=== PATIENT | female | born 1940 | race Caucasian/White ===

== ENCOUNTER 2023-10-17 22:47 | Inpatient (IN) | payer MEDICARE, OTHER, SELFPAY ==
[2023-10-17 18:18] VITALS: BP 119/54; BMI 23.8
[2023-10-17 18:22] VITALS: BMI 23.8
[2023-10-17 18:45] LABS: % Basophils 0.7 % (0-2); % Eosinophils 1.9 % (0-6); % Immature Granulocytes 0.2 % (0-0.5); % Lymphocytes 52.4 % (20.5-51.1); % Monocytes 9.4 % (1.7-9.3); % Neutrophils 35.4 % (42.2-75.2); Absolute Eosinophils 0.1 10^3/uL (0-0.7); Absolute Lymphocytes 3.1 10^3/uL (1.2-3.4); Absolute Monocytes 0.6 10^3/uL (0.1-0.6); Absolute Neutrophils 2.1 10^3/uL (1.4-6.5); Hematocrit 35.3 % (37.0-47.0); Hemoglobin 11.5 g/dL (12.0-16.0); Mean Corp Hgb Conc. 32.6 g/dL (33.0-37.0); Mean Corpuscular Hgb 23.9 pg (27.0-31.0); Mean Corpuscular Volume 73.2 fL (81.0-99.0); Mean Platelet Volume 9.7 fL (7.4-10.4); Nucleated Red Blood Cells % 0 %; Platelet Count 303 10^3/uL (130-400); Red Blood Cell Count 4.82 10^6/uL (4.20-5.40); Red Cell Dist. Width 15.5 % (11.5-14.5); White Blood Cell Count 5.9 10^3/uL (4.8-10.8)
--- NOTE | 2023-10-17 18:56 | ED.GENMED ---
History of Present Illness
General
Chief Complaint: Change in Mental Status
Source: patient and family (Son- in law)
Exam Limitations: dementia
Time Seen by Provider: 10/17/23 18:24
Travel History
Have you had any contact with someone who has COVID-19?: No
Do you have any symptoms of coronavirus? Fever > 100 degrees, chills, cough, shortness of breath, sore throat, loss of taste or smell, muscle aches, or headache?: No
History of Present Illness
History of Present Illness:
This is a 83 year old female that is brought in by ambulance with c/o increased confusion and not caring for self. Son-in-law states that today patient was not getting OOB. States that she was incont of urine and the bed was soaked. States that on
Friday her daughter talked with her and she was confused and talking about snakes. States that she has not been going down to meals except dinner. States that her urine has a strong smell. States that they want to get patient moved from
Independent living to assisted living at [facility]. States that the patient has COVID a week ago. States that she also has not been bathing. Denies any fever, chills, chest pain, SOB, abd pain, nausea, vomiting, diarrhea, headache, dizziness,
urinary burning.
Past History
Past History
ED Past Medical History: Other (Dementia); Negative CAD, GERD, HTN, Hypercholesterolemia, NIDDM or Hypothyroidism
ED Past Surgical History: Other (Cataract removal)
Social History
Tobacco: Former smoker
Alcohol: Occasional (Rare alcohol use)
Drug: None
Personal: (But for 30 years)
Living: alone
Employment: Retired
Family History
Family History: Negative Early CAD, CAD or Sudden
Review of Systems
Review of Systems
Other source history: family
All Other Systems: ROS reviewed and negative except as documented in HPI and ROS
Constitutional: Reports no symptoms; Denies fever or chills
EENT: Reports no symptoms
Respiratory: Reports no symptoms; Denies trouble breathing or other
Cardiac: Reports no symptoms; Denies chest pain
ABD/GI: Reports no symptoms; Denies abdominal pain, nausea, vomiting or diarrhea
: Reports incontinence (fowl smell)
Musculoskeletal: Reports no symptoms
Skin: Reports no symptoms
Neurological: Reports no symptoms; Denies dizzy or headache
Psychiatric: Reports no symptoms
Phy Exam
General Physical Exam
General Presentation: no apparent distress
General age: appears stated age
General Skin: warm and dry
General Habitus: elderly
General Mental: usual mental status
General Hydration: appears well hydrated
ENT Exam
ENT Exam: TM's normal, pharynx normal and neck supple
Eye Exam
Eye Exam: EOMI
Cardiovascular Exam
Cardiovascular Exam: regular rate/rhythm, no edema and normal peripheral pulses
Pulmonary Exam
Pulmonary Exam: lungs clear, no respiratory distress, no rales, chest non tender, no crackles, no rhonchi, no wheezing and no cough
Gastrointestinal Exam
Gastrointestinal Exam: normal bowel sounds, non tender, soft, no organomegaly, no pulsatile mass and non distended
Musculoskeletal Exam
Musculoskeletal Exam: full ROM and no edema
Skin Exam
Skin Exam: normal color, warm/dry, no rash and no petechia
Psychiatric Exam
Psychiatric Exam: normal mood/affect
Course
Orders/Labs/Results
Orders:
Orders
10/17/23 18:27
CBC/With Diff [Complete Blood Count/With Diff] Urgent
CMP [Comprehensive Metabolic Panel] Urgent
Urinalysis Reflex To Culture Urgent
Date Specimen was Collected: 10/17/23
Time Specimen was Collected: 18:25
Urine Microscopic Reflex Cult Urgent
Urine Culture Urgent
FAISAL Source: U
Specimen Description:
Date Specimen was Collected: 10/17/23
Time Specimen was Collected: 18:25
10/17/23 18:29
COVID-19 Antigen Urgent
Source: Nasal Swab
Influenza A+B Rapid Molecular Urgent
FAISAL Source: Nasal Swab
Specimen Description:
10/17/23 20:14
CefTRIAXone [Rocephin] 1,000 mg IV NOW STA
Abnormal Lab Results
10/17/23
18:27
Hgb 11.5 L g/dL
(12.0-16.0)
Hct 35.3 L %
(37.0-47.0)
MCV 73.2 L fL
(81.0-99.0)
MCH 23.9 L pg
(27.0-31.0)
MCHC 32.6 L g/dL
(33.0-37.0)
RDW 15.5 H %
(11.5-14.5)
Neutrophils % 35.4 L %
(42.2-75.2)
Lymphocytes % 52.4 H %
(20.5-51.1)
Monocytes % 9.4 H %
(1.7-9.3)
Ur Occult Blood Reflex 1+ A
(Negative)
Urine Nitrite (Reflex) Positive A
(Negative)
Leukocyte Esterase Rfl 2+ A
(Negative)
Urine RBC 7-10 A /HPF
(0-2)
Urine WBC (Reflex) >100 A /HPF
(0-5)
Urine Bacteria (Reflex) Many A
(Negative)
10/17/23 18:27
10/17/23 18:27
H/H slightly low. Urine positive for infection.
Vital Signs
Initial and Last Documented VS:
Initial Vital Signs
Temp Pulse Resp BP Pulse Ox
98.6 F 61 17 119/54 95
10/17/23 18:18 10/17/23 18:18 10/17/23 18:18 10/17/23 18:18 10/17/23 18:18
Last Documented Vital Signs
Temp Pulse Resp BP Pulse Ox
98.6 F 61 13 119/54 96
10/17/23 18:18 10/17/23 18:30 10/17/23 18:30 10/17/23 18:18 10/17/23 18:30
MDM/Problems Addressed
Differential Diagnosis Includes:
UTI, increased dementia.
MDM/Problems Addressed:
This is a 83 year old female that comes in with c/o increased confusion. Son-in-law states tht she has been in bed all day and that she was laying in Urine. States that she has not been showering herself or eating well.
Will get labs and Urine.
Back into see patient and Son-in-law. Explained that the patient does have a UTI and will admit patient to so Social issues and the need for increased care. Hospitalist notified.
Chronic conditions affecting care: Other (Dementia)
Acute Exacerbation and/or Progression of Chronic Illness: Other (Dementia)
*Pulse Oximetry
Patient hypoxic: no
*EKG
Interpreted by ED Provider?: NA
Rate: EKG- N/A
*Critical Care Note
Total Time (30-74mins, 75-104mins- exclusive of procedures): Not Applicable
ED Attending Note
-
Portions of this chart may have been created with voice recognition software.� Occasional wrong word or��sound alike� substitutions may have occurred due to the inherent limitations of voice recognition software.
Discharge Plan
Departure
Patient Disposition: Admit
Date of Disposition: 10/17/23
Time of Disposition: 20:20
Admit to: Med/Surg
Presentation/result/management discussed w/ accepting MD/DO: Hospitalist
Patient with high blood pressure during this ER visit?: No
Condition: Good
Covid-19: Not Applicable
Discharge Problem:
Acute UTI, Dementia
Prescriptions:
No Action
No Current Medications
0
Interventions
Interventions:
*Risk Screen - Suicide Last Done: 10/17/23 18:18
*General Assessment Last Done: 10/17/23 18:18
*Neglect/Abuse Screening Last Done: 10/17/23 18:18
ED- Fall Risk Assessment Last Done: 10/17/23 18:43
ED- Cardiac Assessment Last Done: 10/17/23 18:43
ED- Neurological Assessment Last Done: 10/17/23 18:43
ED- Pulmonary Assessment Last Done: 10/17/23 18:43
ED Swallowing Screen Last Done: 10/17/23 18:43
[2023-10-17 18:57] LABS: Urine Albumin Trace (Neg - Trace); Urine Bilirubin Negative (Negative); Urine Character Very Cloudy (Clear); Urine Color Yellow; Urine Glucose Negative (Negative); Urine Ketone Negative (Negative); Urine Leukocyte 2+ (Negative); Urine Nitrite Positive (Negative); Urine Occult Blood 1+ (Negative); Urine Urobilinogen Negative (Neg - 1+)
[2023-10-17 19:00] VITALS: BP 115/63
[2023-10-17 19:00] LABS: ALT (SGPT) 10 U/L (0-35); AST (SGOT) 22 U/L (14-36); Albumin 3.7 g/dl (3.5-5.0); Alkaline Phosphatase 69 U/L (38-126); Blood Urea Nitrogen 17 mg/dl (7-17); Calcium 9.6 mg/dl (8.4-10.2); Carbon Dioxide 27 mmol/L (22-30); Chloride 101 mmol/L (98-107); Estimated Creatinine Clearance 58 ml/min; Glucose 99 mg/dl (70-99); Potassium 4.2 mmol/L (3.5-5.1); Sodium 138 mmol/L (135-145); Total Bilirubin 0.8 mg/dl (0.2-1.3); Total Protein 6.9 g/dl (6.3-8.2); eGFR > 60.00
[2023-10-17 19:06] LABS: COVID-19 Antigen Negative (Negative)
[2023-10-17 19:14] LABS: Urine Bacteria Many (Negative); Urine White Cell >100 /HPF (0-5)
[2023-10-17 20:00] VITALS: BP 119/69
[2023-10-17] MEDS: ROCEPHIN 1000 MG IV (20:26)
--- NOTE | 2023-10-17 20:31 | EDRN ---
Pt's son in law,Tha, requesting to be contacted with any updates. [phone]
[2023-10-17 21:00] VITALS: BP 109/63
[2023-10-17 22:00] VITALS: BP 98/56
--- NOTE | 2023-10-17 22:04 | HPS.HSE ---
Family Physician
-
Family Physician: Sariah Mulligan
Chief Complaint
-
Confusion, Unable to care for herself
History of Present Illness
83yo F with PMH Dementia, Arthritis, Incomplete bladder emptying presents to ER c/o worsening mentation. Pt is from [facility] independent living facility. In the last 3 days she has reported hallucinations (seeing snakes) with associated urinary
incontinence. Family is concerned she is not suitable any longer for independent living. Even prior to this they report she has frequently been skipping breakfast and lunch and has become more of a recluse. At baseline Ambulates with cane and is
AAOx2-3 waxing and waning. Denies fever, chills, dizziness/LH, frequent falls, chest pain, palps, wheezing, cough, abd pain, n/v/d/c, dysuria, calf or leg pain.
Pt presents with V.S.S. On evaluation in ER BP softer 95/65mmHg. Basic labs wnl. WBC 5.9K. UA grossly positive. S/P Rocephin in ER.
Urologist: Dr. Cody
Medical History
Past Medical History
Past Medical History: Reports Other (Dementia, Arthritis)
Past Surgical History: Reports Other (cataract sx)
Social History
Unable to obtain full social history at this time due to: Dementia
Tobacco: Former Smoker
Alcohol: None
Drug: None
Living: Assisted Living ([facility])
Family History
Family History: Other (Father with Renal Cancer. Mother with Dementia. )
Allergies / Home Medications
Allergies reflects when Allergies were last updated in [employer].
Home Medications with original date entered in [employer]
Allergy/Medication List:
Allergies
Allergy/AdvReac Type Severity Reaction Status Date / Time
No Known Allergies Allergy Verified 02/17/20 10:01
Home Medications
No Meds [No Current Medications] 10/17/23
Review of Systems
-
Unable to obtain full review of systems at this time due to: Dementia
A 12 point ROS was completed and negative except as noted: Yes
Physical Exam
Vital Signs
Vital Signs
Temp Pulse Resp BP Pulse Ox
98.6 F 61 13 119/54 96
10/17/23 18:18 10/17/23 18:30 10/17/23 18:30 10/17/23 18:18 10/17/23 18:30
Physical Exam
General: No Apparent Distress, Conversant and Poor Appetite
HEENT: NormoCephalic, Atraumatic and Other (Dry MM, No oral exudates)
Respiratory: Clear; No Wheezes, Rales or Rhonchi
Cardiac: S1/S2 and Regular Rhythm; No Murmur or Rub
GI: Soft, Non Tender, Non Distended and Normal Bowel Sounds; No Organomegaly
Rectal: Deferred by Provider
Genito-urinary: No costovertebral tender; No Mendiola
Musculoskeletal: No Clubbing, No Cyanosis and No Edema
Skin: No Rash
Neuro: Awake, Alert, Nonfocal/grossly intact and Other (AOx2-3. Knows name, MILES, president, initially stated 2022 but self corrected. )
Hematologic/Lymphatic: No Lymphadenopathy
Psych: Other (mildly confused. )
Laboratory Results
-
10/17/23 18:27
10/17/23 18:27
Laboratory Results
Total Bilirubin 0.8 mg/dl (0.2-1.3) 10/17/23 18:27
AST 22 U/L (14-36) 10/17/23 18:27
ALT 10 U/L (0-35) 10/17/23 18:27
Alkaline Phosphatase 69 U/L (38-126) 10/17/23 18:27
Data Reviewed
-
Lab Data: Labs Reviewed by me
Old Records: Reviewed
Impression/Plan
-
Acute on Chronic Encephalopathy / Hx Dementia
- Family reports visual hallucinations 'seeing snakes'. Likely acute metabolic component of enceph 2/2 uti/dehydration on chronic dementia
- No focal findings on exam. Continue rocpehin and trend for improvement.
- PT consult
UTI
- Afebrile. No leukocytosis. UA grossly positive. Follow up UCx
- Continue rocephin (hx pansusceptible ecoli 07/2023)
Need for Social Service Intervention
- Family reports her frequently skipping breakfast/lunch and decreased ability to care for herself on indpt living side of [facility]
- Consult PT and Care management for placement. Daughter is in agreement that she does not want her to remain in indpt facility.
Hx Incomplete Bladder Emptying
- Pt following with Dr. Cody (urology). I discussed that further evaluation of urodynamics would need to occur after completion of UTI treatment
Diet: Regular
Code Status: Full Code
PPx: Lovenox
[2023-10-17 23:00] VITALS: BP 113/65
[2023-10-18] VITALS: BP 104/66
[2023-10-18 00:15] VITALS: BP 141/70; BMI 22.7
--- NOTE | 2023-10-18 00:15 | PTCARENOTE ---
Received pt from ED via stretcher. Pt ambulated to bed with standby assist. AAOx3, forgetful. Bed alarm placed and plugged in. VSS. No complaints of pain. Assessed and oriented to room. Pt verbalized understanding of call kay. Call kay within
close reach. Will continue to monitor.
[2023-10-18] MEDS: NSS 1000 IV ×2 (00:23→08:16)
[2023-10-18] MEDS: FLUSH (NSS) 1 FLUSH IV (00:24)
--- NOTE | 2023-10-18 07:44 | W.PN.HOSP.TC ---
Addendum entered and electronically signed by Ammon Cary MD 10/18/23 09:12:
Unexpected rapid recovery.
Total time spent on d/c = 34 min. This included today's physical exam, progress note, review of laboratory and diagnostic data, preparation of discharge documents and prescriptions, and discussions about the pt's hospital course and discharge plan
with the patient and other medical coder involved in the patient's care.
Original Note:
Today's Communication/Plan
-
d/c
Assessment / Plan
Assessment / Plan
Gen: NAD, AAOx3.
Eyes: EOMI, PERRLA, no scleral icterus.
Neck: supple.
CV: RRR, +S1/S2, no m/r/g.
Resp: CTAB, no rales, wheezes, or rhonchi.
Abd: +BS, soft, NT, ND
Skin: No rashes.
Neuro: CN 2-12 intact, non-focal.
Psych: Normal mood and affect.
Progression of dementia:
-Currently the patient is awake alert and orient x 3. Of note she has no urinary symptoms now or prior. She is afebrile and has no leukocytosis. Urinalysis with pyuria could simply represent asymptomatic bacteriuria. Follow urine culture.
Patient received Rocephin. While awaiting urine culture patient can be transitioned to Keflex for empiric 3 to 5 days of treatment.
Need for Social Service Intervention:
-Family reports her frequently skipping breakfast/lunch and decreased ability to care for herself on indpt living side of [facility]
-Consult PT and Care management for placement. Daughter is in agreement that she does not want her to remain in indpt facility.
Hx Incomplete Bladder Emptying:
-Pt following with Dr. Cody (urology), further evaluation of urodynamics would need to occur after completion of UTI treatment
FULL/Lovenox
Medically cleared for discharge, case management aware.
Anticipated Discharge: Today
Subjective/Interval History
-
Date of Service: October 18, 2023
Patient without acute complaints. Denies chest pain or shortness of breath. Reports that she currently does not have dysuria or change in urinary frequency. She denies any symptoms prior to admission.
Objective Data
-
Vital Signs:
Vital Signs
Temp Pulse Resp BP Pulse Ox
97.6 F 67 18 141/70 97
10/18/23 00:15 10/18/23 00:15 10/18/23 00:15 10/18/23 00:15 10/18/23 00:30
I&O
10/17/23 10/18/23 10/19/23
06:59 06:59 06:59
Intake Total 820 / 820
Balance 820 / 820
[2023-10-18 07:50] VITALS: BP 146/72
--- NOTE | 2023-10-18 08:54 | CM ---
Addendum entered by Kenisha Vela RN 10/18/23 15:40:
[facility] unavilable on weekend.
Spoke with Radha, [facility] Rolan; no available bed anticipated for several days.
Spoke with Joseph Palacios; discussed patient's mobility as per PT/OT. They are able to accept the patient on 10/20 for skilled rehab.
Spoke with Sariah; she agreed to SNF referrals to [facility] & [facility] SNFs, and is aware that her mother cannot be accepted by a SNF under Medicare until Friday 10/20. She could go to SNF at [facility] today however it would need to
be private pay for respite. Sariah had volunteered that she worked at [place] and Tha worked at [facility], however they have not talked to [facility] or [place] about having the patient stay there for respite. Daughter says she will ask her
to take the patient home today and family will stay with her until a caregiver is put in place. She agrees to a referral for [facility].
Plan home today with [facility], and family as caregivers.
Addendum entered by Kenisha Vela RN 10/18/23 15:37:
PT & OT recommend HH.
Received phone call from daughter Chela, who lives in [place] (who is not listed as a contact); daughter questioned whether patient is safe to go home without going to a SNF. Explained that she can be safe at home with 24 hr supervision provided by
family or a caregiver. She will discuss with her sister and brother in law.
Spoke with Sariah; she agreed to SNF referrals to [facility] & [facility] SNFs,
Original Note:
Patient from [facility] with Dx AMS, UTI. Receiving IV ceftriaxone. PT Eval pending.
Spoke with patient's daughter Sariah and son in law Tha; the patient resides alone in an apartment at [facility].
She has been independent in ADLs and ambulates with her SPC.
The patient has been declining, is more forgetful, is incontinent of urine and forgeting to change her diaper, not eating breakfast or lunch, forgeting to take her meds, and isolating herself in her apartment whereas before she was social and doing
activities.
DME - [facility]
VN - prior [facility]
SNF - none
PCP - Sariah Mulligan
Pharmacy - [facility]
The Dtr/DAVID have made arrangements for the patient to move to [facility] in 2 weeks. CM recommends 24 hr supervision in the interim due to forgetfulness & not taking meds.
Daughter says she is unwell so spoke with Tha a second time. Discussed d/c needs; Sariah/Tha will probably stay with the patient and will reach out to a caregiver that they had in the past for the patient. Offered Caregiver list and Tha
accepts. IMM reviewed with Tha. Copies of CG list & IMM sent to his email at [email or web address].
Plan follow up after PT Eval.
[2023-10-18 10:20] VITALS: BP 150/75; PULSE 65; O2SAT 98
--- NOTE | 2023-10-18 11:00 | PTCARENOTE ---
rachel Gomez at [phone] called and stated she was POA but lives in [place]. I validated this with patient and she verified that both daughters are POA. Rachel requested to speak to because of her concerns and disagreement with DC. CM spoke
to other sister and already. I immediately contacted CM who instructed me to read her note. I did express my concerns to DR Cary about confusion of POA and their conflicting statements to me. I was also concerned because the CM note at 8
am states that pt requires 24 hour care: leaving patient with her son and law to care for her alone 24 hours for 2 weeks until vn can come out. DR Cary explained to me that the patient is safe for DC with the supervision of her son in law and
COVID in the family. I did express my concern with component assembler supervisor due to the two issues. She recommended i communicate one last time with both Dr Cary and JONATHAN of my concerns for discharge and POA conflicting desires. This was done. JONATHAN currently
speaking with her director on what to do.
[2023-10-18] MEDS: KEFLEX 500 MG PO ×3 (12:57→21:57)
[2023-10-18 15:00] VITALS: BP 122/63
--- NOTE | 2023-10-18 16:15 | PTCARENOTE ---
Pt not sure when she is being picked up however Cm did notify me that son in law will be picking her up shortly
--- NOTE | 2023-10-18 18:17 | PTCARENOTE ---
This nurse has been in the patient's room every hour to check on patient specifically asking if she needed anything to drink, eat, go to bathroom, pain and to ask for I can do anything for her. Pt got dressed on her own into street clothes and has
been in and out of the bathroom independently multiple times. Everytime i do a comfort round, she smiles and says no i am fine. At 530 daughter called me to ask me why we have not changed her mother. I explained that she is independent. The
daughter stated that her mother texted her to say she has been sitting i we street pants archana. When i went into the patients room to ask her if she needed help with anything she said no. then i told her what her daughter said and she admitted
her pants are wet and she needed a new brief. I asked why she did not mention this before. she stated. she did not think of it. I encouraged pt to get out of street clothes, we got her cleaned up and put a new brief on.
[2023-10-18] MEDS: LOVENOX 40 MG SC (18:39)
[2023-10-18 23:27] VITALS: BP 120/62
[2023-10-19 07:46] VITALS: BP 126/65
[2023-10-19] MEDS: KEFLEX 500 MG PO (08:18)
--- NOTE | 2023-10-19 09:01 | CM ---
it compliance manager reviewed patient's chart and met with patient this am and nursing. Patient is still dressed for discharge to home today with [facility]. Per previous special education case manager notes, family have a plan to move patient into personal care at [facility] in
2 weeks, previous special education case manager provided options for patient's family to assist with discharge planning, pay for respite care at [facility] or take patient home and provide supervision for patient though family supports or hiring a caregiver
for 2 weeks till patient moves to personal care.
Plan; Message left for Sariah patient's daughter [phone] this morning to inform her that patient is dressed and ready to leave today, patient also stated that she would call her daughter to come and pick her up around 9:30am.
Home with [facility] and family supports.
[2023-10-19] MEDS: STERILE WATER FOR INJECTION 10 ML IV (09:15)
[2023-10-19] MEDS: ROCEPHIN 1000 MG IV (09:15)
--- NOTE | 2023-10-19 11:29 | W.PN.HOSP.TC ---
Addendum entered and electronically signed by Ko Harris MD 10/19/23 15:36:
100
Original Note:
Today's Communication/Plan
-
dc on keflex to complete 5 day course
F/u urology, pcp outpatient
Assessment / Plan
Assessment / Plan
Gen: NAD, AAOx3.
Eyes: EOMI, PERRLA, no scleral icterus.
Neck: supple.
CV: RRR, +S1/S2, no m/r/g.
Resp: CTAB, no rales, wheezes, or rhonchi.
Abd: +BS, soft, NT, ND
Skin: No rashes.
Neuro: CN 2-12 intact, non-focal.
Psych: Normal mood and affect.
Progression of dementia:
-Currently the patient is awake alert and orient x 3. Of note she has no urinary symptoms now or prior. She is afebrile and has no leukocytosis. Urinalysis with pyuria could simply represent asymptomatic bacteriuria. Follow urine culture.
Patient received Rocephin. Urine cultures positive for E. coli. Sensitive to Keflex, already prescribed Keflex on discharge
Need for Social Service Intervention:
-Family reports her frequently skipping breakfast/lunch and decreased ability to care for herself on indpt living side of [facility]
-Consult PT and Care management for placement. Daughter is in agreement that she does not want her to remain in indpt facility.
Hx Incomplete Bladder Emptying:
-Pt following with Dr. Cody (urology), further evaluation of urodynamics would need to occur after completion of UTI treatment
FULL/Lovenox
Medically cleared for discharge, patient will be going home
More than 30 minutes spent in discharge including
Final examination of the patient
Summarizing hospital stay
Instructions for continuing care to all relevant caregivers
Preparation of discharge records, prescriptions, and referral forms
Total time spent (35 in minutes):
Anticipated Discharge: Today
Subjective/Interval History
-
Date of Service: October 19, 2023
Patient much more alert
Objective Data
-
Vital Signs:
Vital Signs
Temp Pulse Resp BP Pulse Ox
98.6 F 69 17 126/65 96
10/19/23 07:46 10/19/23 07:46 10/19/23 07:46 10/19/23 07:46 10/19/23 08:33
I&O
10/18/23 10/19/23 10/20/23
06:59 06:59 06:59
Intake Total 820 / 820 1200 / 1200
Balance 820 / 820 1200 / 1200
Review of Systems
-
History Source: Patient and Coordinated Provider
Constitutional: Reports No Symptoms; Denies Fever
Respiratory: Reports No Symptoms
Cardiac: Reports No Symptoms
Abdomen/GI: Reports No Symptoms
Genitourinary: Reports No Symptoms; Denies Dysuria
Neuro: Reports No Symptoms
Physical Exam
-
General: Well Developed, Well Nourished and No Apparent Distress
HEENT: Normocephalic, Atraumatic and Moist Mucous Membranes
Respiratory: Clear to Auscultation; Negative Wheezes, Rales or Rhonchi
Cardiac: Regular Rhythm and S1/S2
GI: Soft, Nontender and Nondistended
Musculoskeletal: No Clubbing, No Cyanosis and No Edema
Skin: Warm, Dry and Rash (rt sided shingles rash, crusting over)
Neuro: Awake, Alert and Oriented
Data Reviewed
-
Labs: Labs Reviewed by me
--- NOTE | 2023-10-27 16:17 | W.DS.TRANS ---
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
-
Discharge Instructions:
Discharge Diagnosis/Procedures possible urinary tract infection, dementia
Diet No restrictions
Activity As tolerated
Driving Restrictions Not until seen by your Dr
Bathing Restrictions None
Instructions:
Stand-Alone Forms:
Changes to Home Medications: Yes
Discharge Medications:
DC Medications w/original date entered in [employer]
cephalexin 500 mg capsule 500 mg PO QID #20 caps 10/18/23
Home Medication Changes
cephalexin 500 mg capsule 500 mg PO QID #20 caps 10/18/23
Pending Results: No
== END 2023-10-19 12:06 | disposition home health service (06) | DRG 690 ==
LOC: 3 WEST ACU 22:47
PROVIDERS: Clinical Nurse Specialist Family Health; ADMITTING PHYSICIAN Internal Medicine; ATTENDING PHYSICIAN Internal Medicine; EMERGENCY PHYSICIAN Emergency Medicine; FAMILY PHYSICIAN Internal Medicine
DX: N39.0 Urinary tract infection, site not specified (principal); F03.92 Unspecified dementia, unspecified severity, with psychotic disturbance; B96.20 Unspecified Escherichia coli [E. coli] as the cause of diseases classified elsewhere; R33.9 Retention of urine, unspecified; E03.9 Hypothyroidism, unspecified; E78.00 Pure hypercholesterolemia, unspecified; I10 Essential (primary) hypertension; I25.10 Atherosclerotic heart disease of native coronary artery without angina pectoris
CPT/HCPCS: 80053; 81003; 81015; 85025; 87070; 87077; 87086; 87186; 87502; 87811; 96374; 97162; 97165; 99284

== ENCOUNTER → 2023-11-13 10:29 | Outpatient (REF) | payer MEDICARE, OTHER, SELFPAY ==
[2023-11-13 11:36] LABS: ALT (SGPT) 11 U/L (0-35); AST (SGOT) 18 U/L (14-36); Albumin 3.5 g/dl (3.5-5.0); Alkaline Phosphatase 70 U/L (38-126); Blood Urea Nitrogen 20 mg/dl (7-17); Calcium 9.3 mg/dl (8.4-10.2); Carbon Dioxide 28 mmol/L (22-30); Chloride 103 mmol/L (98-107); Glucose 97 mg/dl (70-99); HDL Cholesterol 63 mg/dl; LDL Cholesterol, Calculated 170 mg/dl; Potassium 4.3 mmol/L (3.5-5.1); Sodium 138 mmol/L (135-145); Total Bilirubin 0.5 mg/dl (0.2-1.3); Total Cholesterol 247 mg/dl (50-199); Total Protein 6.5 g/dl (6.3-8.2); Triglyceride 70 mg/dl (10-149); Very Low Density Lipoprotein 14 mg/dl (0-30); eGFR > 60.00
[2023-11-13 11:52] LABS: Vitamin D, 25-OH*** 28.1 ng/mL (30-80)
[2023-11-13 12:05] LABS: TSH Reflex To Free T4 2.51 uIU/ml (0.47-4.68)
[2023-11-13 12:17] LABS: Hematocrit 31.6 % (37.0-47.0); Hemoglobin 10.1 g/dL (12.0-16.0); Mean Corpuscular Hgb 23.3 pg (27.0-31.0); Mean Corpuscular Volume 72.8 fL (81.0-99.0); Platelet Count 262 10^3/uL (130-400); Red Blood Cell Count 4.34 10^6/uL (4.20-5.40); Red Cell Dist. Width 15.9 % (11.5-14.5); White Blood Cell Count 5.6 10^3/uL (4.8-10.8)
[2023-11-13 13:04] LABS: Absolute Neutrophils -Man Diff 1.2 10^3/uL (1.4-6.5); Anisocytosis 1+; Atypical Lymphocytes 9 %; Band Neutrophils 1 % (0-3); Eosinophils 5 % (0-6); Hypochromasia 1+; Lymphocytes 61 % (20-51); Monocytes 3 % (2-9); Normal RBC Morphology No; Platelets Checked Yes; Segmented Neutrophils 21 % (42-75)
[2023-11-13 13:05] LABS: Ovalocytes 1+; Target Cells 1+; Total Cells Counted 100
[2023-11-13 13:16] LABS: Glycohemoglobin (HgbA1c) 5.8 % (4.0-5.6)
== END ==
LOC: OLABMERCHI 10:29
PROVIDERS: ATTENDING PHYSICIAN Hospitalist
DX: E03.9 Hypothyroidism, unspecified (principal); E78.5 Hyperlipidemia, unspecified; E55.9 Vitamin D deficiency, unspecified; E11.9 Type 2 diabetes mellitus without complications; D64.9 Anemia, unspecified; R94.4 Abnormal results of kidney function studies
CPT/HCPCS: 36415; 80053; 80061; 82306; 83036; 84439; 84443; 85025

== ENCOUNTER 2023-12-16 17:10 | Observation (INO) | payer MEDICARE, OTHER, SELFPAY ==
[2023-12-16] VITALS (11 sets, daily range): BP systolic 108–176; BP diastolic 56–84; BMI 22.7; BMI 23.4
--- NOTE | 2023-12-16 11:57 | ED.GENMED ---
History of Present Illness
<Naren Meléndez MD - Last Filed: 12/17/23 07:45>
General
Chief Complaint: Chest Pain
Source: patient
Exam Limitations: none
Time Seen by Provider: 12/16/23 11:38
Travel History
Have you had any contact with someone who has COVID-19?: No
Do you have any symptoms of coronavirus? Fever > 100 degrees, chills, cough, shortness of breath, sore throat, loss of taste or smell, muscle aches, or headache?: No
History of Present Illness
History of Present Illness:
83-year-old female complaining of 1 hour episode of chest pressure last evening at bed around 11 PM. Recurring similar episode this morning around 8 AM. Again was in bed but awake. Patient to me denied radiation to the neck back jaw or abdomen.
No shortness of breath nausea or diaphoresis. Currently asymptomatic.
Past History
<Naren Meléndez MD - Last Filed: 12/17/23 07:45>
Past History
ED Past Medical History: Other (Dementia); Negative CAD, GERD, HTN, Hypercholesterolemia, NIDDM or Hypothyroidism
ED Past Surgical History: Other (Cataract removal)
Social History
Tobacco: Former smoker
Alcohol: Occasional (Rare alcohol use)
Drug: None
Personal: (But for 30 years)
Living: alone
Employment: Retired
Family History
Family History: Negative Early CAD, CAD or Sudden
Review of Systems
<Naren Meléndez MD - Last Filed: 12/17/23 07:45>
Review of Systems
All Other Systems: Not applicable
Constitutional: Denies fever
Respiratory: Reports no symptoms
ABD/GI: Reports no symptoms
Phy Exam
<Naren Meléndez MD - Last Filed: 12/17/23 07:45>
Physical Exam
Physical Exam:
GENERAL: Alert and oriented in no apparent distress
EYE: Orbits normal.
NECK: Supple, no thyroid palpable
CARDIAC: Regular rate and rhythm without any obvious murmurs.
LUNGS: Clear breath sounds,normal
ABDOMEN: Soft, without focal tenderness or distention
NEUROLOGICAL: Alert and oriented , grossly non-focal
SKIN: Warm and dry, no rash or lesion, no discoloration, skin intact.
MUSCULOSKELETAL: No edema,no deformity.Good color
PSYCH: Normal and appropriate interaction.
Scores
<Naren Meléndez MD - Last Filed: 12/17/23 07:45>
Heart Score for Chest Pain Patients
STEMI patient?: No
History: Moderately Suspicious
ECG: Normal
Age: >/= 65 years
Risk Factors: 1 or 2 Risk Factors
Troponin: </= Normal Limit
Heart Score for Chest Pain Patients: 4
Heart Score Risk: 20.3% MACE over next 6 weeks
Course
<Naren Meléndez MD - Last Filed: 12/17/23 07:45>
Orders/Labs/Results
Orders:
Orders
12/16/23 11:39
Electrocardiogram (*1) Urgent
Reason for Study: Chest Pain
Cardiac Monitoring- Treatment ONCE
EKG- Treatment ONCE
IV Insert/Care/Rem.- Treatment PRN
O2 Therapy [RESP] Urgent
Titrate/Wean O2 to maintain O2 sat greater than (%): 90
Special Instructions: Maintain sats >/=90%
Pulse Ox/spot Check [RESP] Urgent
Quantity: 1
Special Instructions: ON ROOM AIR
12/16/23 11:50
Complete Blood Count/With Diff Urgent
Comprehensive Metabolic Panel Urgent
Troponin I Urgent
12/16/23 11:59
CXR2 [CR Chest - 2 Views ] Urgent
Comment:
Reason For Exam: cp
12/16/23 Dinner
Regular
At Your Request: Limited Participation
Regular diet: No caffeine
12/16/23 15:06
Electrocardiogram (*1) Stat
Reason for Study: Other
Other Reason for Exam: chest pain
EKG- Treatment ONCE
12/16/23 15:18
Troponin I Urgent
12/16/23 16:44
Pantoprazole [Protonix IV] 40 mg IV NOW STA
12/16/23 16:58
Aspirin Chewable [Low Strength Aspirin] 324 mg PO NOW STA
12/16/23 17:03
Admit/Transfer Patient As Directed
Co-Sign Provider:
Level of Care: Observation services
Assign to:: Telemetry
Physician / Group: cecil
Diagnosis: chest pain
Reason for Telemetry: Chest Pain syndromes
Date to Stop Telemetry: 12/18/23
Time to Stop Telemetry: 11:00
Code Status As Directed
Resuscitation Status: Full Code
12/16/23 19:37
Guaifenesin Dm (Sugar Free) [Safetussin Dm (Sugar/Alcohol Free)] 200 mg PO Q6HPRN PRN
12/16/23 19:37
Activity As Directed
Activity Level: As Tolerated
DX Deep Vein Thrombosis Video Routine
12/16/23 20:00
Heparin 5,000 units SC Q12
12/17/23 06:00
Nuclear lexiscan Stress Test IN AM
Reason for Study: Chest pain
NPO
Allow oral meds: Yes
Allow clear liquids: No
NPO for procedure after (time): Midnight for stress test
Complete Blood Count/With Diff IN AM
Comprehensive Metabolic Panel IN AM
NM Cardiac Stress IN AM
Comment:
Reason For Exam: Chest pain
12/17/23 08:00
Cholecalciferol (Vitamin D3) [VITAMIN D3 (cholecalciferol)] 50 mcg PO DAILY
Tolterodine Extended Release [Detrol LA] 4 mg PO DAILY
12/18/23 11:00
DC Protocol for Telemetry ONCE
Abnormal Lab Results
12/16/23
11:50
Hgb 10.7 L g/dL
(12.0-16.0)
Hct 33.3 L %
(37.0-47.0)
MCV 73.3 L fL
(81.0-99.0)
MCH 23.6 L pg
(27.0-31.0)
MCHC 32.1 L g/dL
(33.0-37.0)
RDW 16.2 H %
(11.5-14.5)
Monocytes % 9.8 H %
(1.7-9.3)
BUN 18 H mg/dl
(7-17)
Glucose 101 H mg/dl
(70-99)
12/16/23 11:50
12/16/23 11:50
Vital Signs
Initial and Last Documented VS:
Initial Vital Signs
Temp Pulse Resp BP Pulse Ox
98.2 F 68 10 127/57 100
12/16/23 11:35 12/16/23 11:35 12/16/23 11:35 12/16/23 11:35 12/16/23 11:35
Last Documented Vital Signs
Temp Pulse Resp BP Pulse Ox
97.7 F 65 18 144/72 95
12/17/23 04:44 12/17/23 04:44 12/17/23 04:44 12/17/23 04:44 12/17/23 04:44
<Damian Lin MD - Last Filed: 12/16/23 23:31>
Orders/Labs/Results
Orders:
Orders
12/16/23 11:39
Electrocardiogram (*1) Urgent
Reason for Study: Chest Pain
Cardiac Monitoring- Treatment ONCE
EKG- Treatment ONCE
IV Insert/Care/Rem.- Treatment PRN
O2 Therapy [RESP] Urgent
Titrate/Wean O2 to maintain O2 sat greater than (%): 90
Special Instructions: Maintain sats >/=90%
Pulse Ox/spot Check [RESP] Urgent
Quantity: 1
Special Instructions: ON ROOM AIR
12/16/23 11:50
Complete Blood Count/With Diff Urgent
Comprehensive Metabolic Panel Urgent
Troponin I Urgent
12/16/23 11:59
CXR2 [CR Chest - 2 Views ] Urgent
Comment:
Reason For Exam: cp
12/16/23 Dinner
Regular
At Your Request: Limited Participation
Regular diet: No caffeine
12/16/23 15:06
Electrocardiogram (*1) Stat
Reason for Study: Other
Other Reason for Exam: chest pain
EKG- Treatment ONCE
12/16/23 15:18
Troponin I Urgent
12/16/23 16:44
Pantoprazole [Protonix IV] 40 mg IV NOW STA
12/16/23 16:58
Aspirin Chewable [Low Strength Aspirin] 324 mg PO NOW STA
12/16/23 17:03
Admit/Transfer Patient As Directed
Co-Sign Provider:
Level of Care: Observation services
Assign to:: Telemetry
Physician / Group: cecil
Diagnosis: chest pain
Reason for Telemetry: Chest Pain syndromes
Date to Stop Telemetry: 12/18/23
Time to Stop Telemetry: 11:00
Code Status As Directed
Resuscitation Status: Full Code
12/16/23 19:37
Guaifenesin Dm (Sugar Free) [Safetussin Dm (Sugar/Alcohol Free)] 200 mg PO Q6HPRN PRN
12/16/23 19:37
Activity As Directed
Activity Level: As Tolerated
DX Deep Vein Thrombosis Video Routine
12/16/23 20:00
Heparin 5,000 units SC Q12
12/17/23 06:00
Nuclear lexiscan Stress Test IN AM
Reason for Study: Chest pain
NPO
Allow oral meds: Yes
Allow clear liquids: No
NPO for procedure after (time): Midnight for stress test
Complete Blood Count/With Diff IN AM
Comprehensive Metabolic Panel IN AM
NM Cardiac Stress IN AM
Comment:
Reason For Exam: Chest pain
12/17/23 08:00
Cholecalciferol (Vitamin D3) [VITAMIN D3 (cholecalciferol)] 50 mcg PO DAILY
Tolterodine Extended Release [Detrol LA] 4 mg PO DAILY
12/18/23 11:00
DC Protocol for Telemetry ONCE
Abnormal Lab Results
12/16/23
11:50
Hgb 10.7 L g/dL
(12.0-16.0)
Hct 33.3 L %
(37.0-47.0)
MCV 73.3 L fL
(81.0-99.0)
MCH 23.6 L pg
(27.0-31.0)
MCHC 32.1 L g/dL
(33.0-37.0)
RDW 16.2 H %
(11.5-14.5)
Monocytes % 9.8 H %
(1.7-9.3)
BUN 18 H mg/dl
(7-17)
Glucose 101 H mg/dl
(70-99)
12/16/23 11:50
12/16/23 11:50
Vital Signs
Initial and Last Documented VS:
Initial Vital Signs
Temp Pulse Resp BP Pulse Ox
98.2 F 68 10 127/57 100
12/16/23 11:35 12/16/23 11:35 12/16/23 11:35 12/16/23 11:35 12/16/23 11:35
Last Documented Vital Signs
Temp Pulse Resp BP Pulse Ox
97.7 F 65 18 144/72 95
12/17/23 04:44 12/17/23 04:44 12/17/23 04:44 12/17/23 04:44 12/17/23 04:44
<Naren Meléndez MD - Last Filed: 12/17/23 07:45>
MDM/Problems Addressed
Differential Diagnosis Includes:
Recurring nonexertional chest pain. Clinically stable. Workup in progress.
<Naren Meléndez MD - Last Filed: 12/17/23 07:45>
*EKG
Interpreted by ED Provider?: Yes
Interpretation: abnormal
Comparison EKG: no changes
Heart Rate: 59
Rate: bradycardiac
Rhythm: sinus
[place]: normal axis
Interval: normal interval
QRS Pattern: normal QRS
Ischemia: non-specific ST changes
*Critical Care Note
Total Time (30-74mins, 75-104mins- exclusive of procedures): Not Applicable
Data Reviewed
Review of Other/Old Records Reveals: Labs, Records and Testing
<Damian Lin MD - Last Filed: 12/16/23 23:31>
Update Note
Update Note:
UPDATE (Damian Lin MD)
Focused HPI: 83-year-old female with mild dementia and a history of pericarditis presents for evaluation of chest pain. Apparently had an episode of chest pain last night that resolved and then an episode earlier today that resolved, aide felt that
she was short of breath as well. Currently chest pain-free. Seen by Dr. Centeno in the past.
Physical exam: Awake alert not in distress. Vital signs normal.
Medical Decision Makin-year-old female presents after a few episodes of chest pain apparently some shortness of breath as well. She had no STEMI on EKG. Basic labs essentially unremarkable. Initial troponin negative. Cardiology assessed at
bedside plan to admit to hospitalist service for observation, trend troponins and likely stress in the morning. Will cover with PPI as well in case this represents some GERD�patient is a poor historian.
ED Attending Note
<Naren Meléndez MD - Last Filed: 12/17/23 07:45>
-
Portions of this chart may have been created with voice recognition software.� Occasional wrong word or��sound alike� substitutions may have occurred due to the inherent limitations of voice recognition software.
Discharge Plan
Departure
Patient Disposition: Admit
Date of Disposition: 12/16/23
Time of Disposition: 16:44
Admit to doctor: Luis Daniel
Presentation/result/management discussed w/ accepting MD/DO: Hospitalist
Discharge Problem:
Chest pain
Interventions
Interventions:
*Risk Screen - Suicide Last Done: 12/16/23 11:35
*General Assessment Last Done: 12/16/23 11:35
*Neglect/Abuse Screening Last Done: 12/16/23 11:35
ED- Fall Risk Assessment Last Done: 12/16/23 11:43
*ED COVID-19 Vaccine History Last Done: 12/16/23 11:35
*Nursing Disposition Last Done: 12/16/23 19:31
ED- Cardiac Assessment Last Done: 12/16/23 11:43
Discharge Date and Time
Discharge Date/Time: 12/16/23 19:32
[2023-12-16 12:00] LABS: % Basophils 0.8 % (0-2); % Eosinophils 4.6 % (0-6); % Immature Granulocytes 0.2 % (0-0.5); % Monocytes 9.8 % (1.7-9.3); % Neutrophils 45.6 % (42.2-75.2); Absolute Eosinophils 0.2 10^3/uL (0-0.7); Absolute Monocytes 0.5 10^3/uL (0.1-0.6); Absolute Neutrophils 2.4 10^3/uL (1.4-6.5); Hematocrit 33.3 % (37.0-47.0); Hemoglobin 10.7 g/dL (12.0-16.0); Mean Corp Hgb Conc. 32.1 g/dL (33.0-37.0); Mean Corpuscular Hgb 23.6 pg (27.0-31.0); Mean Corpuscular Volume 73.3 fL (81.0-99.0); Mean Platelet Volume 9.5 fL (7.4-10.4); Nucleated Red Blood Cells % 0 %; Platelet Count 254 10^3/uL (130-400); Red Blood Cell Count 4.54 10^6/uL (4.20-5.40); Red Cell Dist. Width 16.2 % (11.5-14.5); White Blood Cell Count 5.2 10^3/uL (4.8-10.8)
[2023-12-16 12:13] LABS: ALT (SGPT) 16 U/L (0-35); AST (SGOT) 24 U/L (14-36); Albumin 3.9 g/dl (3.5-5.0); Alkaline Phosphatase 78 U/L (38-126); Blood Urea Nitrogen 18 mg/dl (7-17); Calcium 9.3 mg/dl (8.4-10.2); Carbon Dioxide 28 mmol/L (22-30); Chloride 104 mmol/L (98-107); Estimated Creatinine Clearance 57 ml/min; Glucose 101 mg/dl (70-99); Potassium 4.2 mmol/L (3.5-5.1); Sodium 135 mmol/L (135-145); Total Bilirubin 0.6 mg/dl (0.2-1.3); Total Protein 7.1 g/dl (6.3-8.2); eGFR > 60.00
[2023-12-16 12:25] LABS: Troponin I < 0.012 ng/ml
--- NOTE | 2023-12-16 13:44 | CON.CAR ---
Addendum entered and electronically signed by Skip Lozano MD 12/16/23 17:44:
I saw and examined the patient.
The JAVA SQL DEVELOPER's note was reviewed and I agree with the note.
83-year-old woman with a prior history of idiopathic pericarditis, anemia who presents with epigastric/lower chest discomfort. Details of history are challenging. Patient appears to have a component of dementia. In discussion with the patient's
daughter she is aware that the patient has memory issues. Patient does not acknowledge that she has any issues with memory. Patient reported that she had some discomfort yesterday evening and points to the epigastrium and lower chest total time
unclear sounds as if it lasted at least an hour she then had some recurrent symptoms today. Apparently she was evaluated by a nurse at [facility] and based on the daughter's account the nurse reported that the patient appeared 'winded' patient
currently denies having any shortness of breath and does not recall having any of the symptoms during the episode of chest/epigastric discomfort. Of note patient had an ER visit back in the fall. Symptoms sounded somewhat similar evaluation
unremarkable. Patient seen in follow-up but did not have the Lexiscan that was ordered. Currently without chest discomfort troponin unremarkable so far and ECG without ischemic changes. Exact cause of symptoms unclear. Would consider cardiac as
well as noncardiac/GI causes. Considering the difficulty in obtaining a clear-cut history, the report of more than 1 episode of chest discomfort and the possible association with shortness of breath I recommended additional observation. If
patient's troponins remain unremarkable and she otherwise remained stable then would proceed with Lexiscan nuclear perfusion stress test in AM. Would also cover for possible GERD with PPI.
Original Note:
Consultation
Consultation Request
Date/Time Consultation Requested: 12/16/23 12:30
Date/Time Consultation Performed: 12/16/23 13:30
Requesting Provider: Dr. Meléndez
Performing Provider: SPENCER Blanco for Dr. Lozano
Reason for Consultation: Chest pressure
Medical History
-
Chief Complaint: Chest pressure
History of Present Illness:
Radhika Lira is an 83-year-old female (known to Dr. Centeno, her primary land acquisition manager), with idiopathic pericarditis, chronic pericardial effusion, dyslipidemia, anemia, and thalassemia trait presents for complaints of chest pressure. She reports
her chest pressure is midsternal and anterior. It does not radiate. She has no associated symptoms of diaphoresis, nausea, vomiting, and dizziness. She reports having chest pressure overnight. Her most recent episode was at approximately 7 AM.
She reports it lasted at least 1 hour. It was 7/10 in severity. She presented to the emergency department. Her EKG is stable. Initial troponin <0.012.
She was also in the emergency room in June, with midsternal chest pain that woke her from sleep. She followed up with the office. She was ordered an echocardiogram and a nuclear Lexiscan stress test. She did not complete her nuclear
stress test.
Past Medical History
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
Past Surgical History: Gynecological
Social History
Tobacco: Non-Smoker
Alcohol: None
Drug: None
Living: Assisted Living ([facility])
Employment: Retired
Family History
Family History: Reviewed & Not Pertinent
Allergies / Home Medications
Allergy/AdvReac Type Severity Reaction Status Date / Time
No Known Allergies Allergy Verified 02/17/20 10:01
�Medication �Instructions �Recorded �Confirmed �Type
cephalexin 500 mg capsule 500 mg PO QID #20 caps 10/18/23 Rx
Review of Systems
-
History Source: Patient
All other systems: Negative unless noted
Respiratory: No Symptoms
Cardiac: No Symptoms
Abdomen/GI: No Symptoms
Physical Exam
Vital Signs
Temp Pulse Resp BP Pulse Ox
98.2 F 57 17 122/66 99
12/16/23 11:35 12/16/23 13:15 12/16/23 13:15 12/16/23 13:00 12/16/23 13:15
Lab Results
12/16/23 11:50
12/16/23 11:50
Troponin I < 0.012 ng/ml 12/16/23 11:50
Physical Exam
General: Well Developed, Well Nourished and No Apparent Distress
HEENT: Normocephalic, Anicteric and Moist Mucous Membranes
Respiratory: Clear and Non Labored Respirations
Cardiac: S1/S2, Regular Rhythm and Peripheral Edema (ankle edema)
Breast: Deferred by me
GI: Soft, Non Tender, Non Distended and Normal Bowel Sounds
Rectal: Deferred by Provider
Genito-urinary: No Costovertebral Tender
Musculoskeletal: No Clubbing and No Cyanosis
Skin: Warm and Dry
Hematologic/Lymphatic: No Lymphadenopathy
Psych: Calm
Impression / Plan
-
Chest pressure
-One hour midsternal non radiating for one hour, stopped in ambulance
-EKG stable
-Troponin < 0.012, repeat in 3 hours
Dyslipidemia, LDL 205 in 2021 but refuses statin
Pericardial effusion, without hemodynamic compromise, chronic
Prediabetes, Hgba1c 5.8%
Dementia
Data Reviewed
-
EKG: Report Reviewed by me (Sinus bradycardia, nonspecific ST abnormality, rate 59)
Radiology: Report Reviewed by me (CXR: Cardiomegaly without associated pulmonary edema)
Medical Tests (Nuc Med, Echo etc): Report Reviewed by me (Echocardiogram as above)
Labs: Labs Reviewed by me
Old Records: Reviewed
[2023-12-16 15:58] LABS: Troponin I < 0.012 ng/ml
--- NOTE | 2023-12-16 17:05 | HPS.HSE ---
Family Physician
-
Family Physician: Sariah Mulligan
Chief Complaint
-
chest pain
History of Present Illness
83-year-old female past medical history of dementia, presenting with half hour of chest pressure last evening at around 11 PM while sitting. Pain resolved on its own. Patient had another similar episode this morning at 8 AM while lying in bed.
She denies any radiation of pain. Denies any shortness of breath, nausea or diaphoresis. She has recently had some increased lower extremity edema.
Drinks alcohol occasionally. Denies smoking.
No family history of heart disease.
Medical History
Past Medical History
Past Medical History: Reports Other ( dementia, overactive bladder)
Past Surgical History: Reports None
Social History
Tobacco: Non-smoker
Alcohol: Occasional
Drug: None
Family History
Family History: Not pertinent
Allergies / Home Medications
Allergies reflects when Allergies were last updated in [facility].
Home Medications with original date entered in [facility]
Allergy/Medication List:
Allergies
Allergy/AdvReac Type Severity Reaction Status Date / Time
No Known Allergies Allergy Verified 02/17/20 10:01
Home Medications
acetaminophen 325 mg tablet (Tylenol) 650 mg PO Q6HPRN PRN mild pain 12/16/23
cholecalciferol (vitamin D3) 25 mcg (1,000 unit) tablet (Vitamin D3) 50 mcg PO DAILY 12/16/23
dextromethorphan-guaifenesin 10 mg-100 mg/5 mL oral liquid (MAXTussin DM) 10 ml PO Q6HPRN PRN cough 12/16/23
diclofenac sodium 1 % topical gel 2 g topical BID 12/16/23
estradiol 2 mg (7.5 mcg/24 hour) vaginal ring (Estring) 1 vag ring vaginal [id number] 12/16/23
mirabegron 50 mg tablet,extended release 24 hr (Myrbetriq) 50 mg PO DAILY 12/16/23
Review of Systems
-
History Source: Patient
A 12 point ROS was completed and negative except as noted: Yes
Constitutional: Reports No Symptoms
EENT: Reports No Symptoms
Respiratory: Reports No Symptoms
Cardiac: Reports See HPI
Abdomen/GI: Reports No Symptoms
: Reports No Symptoms
Musculoskeletal: Reports No Symptoms
Skin: Reports No Symptoms
Neurological: Reports No Symptoms
Endocrine: Reports No Symptoms
Hematologic/Lymphatic: Reports No Symptoms
Psych: Reports No Symptoms
Physical Exam
Vital Signs
Vital Signs
Temp Pulse Resp BP Pulse Ox
98.2 F 60 18 141/64 98
12/16/23 11:35 12/16/23 16:21 12/16/23 16:21 12/16/23 15:00 12/16/23 16:21
Physical Exam
General: Well Developed, Well Nourished and No Apparent Distress
HEENT: NormoCephalic, Moist mucous membranes and Atraumatic
Respiratory: Clear
Cardiac: S1/S2 and Regular Rhythm; No Murmur or Rub
GI: Soft, Non Tender, Non Distended and Normal Bowel Sounds; No Organomegaly
Rectal: Deferred by Provider
Musculoskeletal: No Clubbing, No Cyanosis and No Edema
Skin: No Rash
Neuro: Nonfocal/grossly intact
Laboratory Results
-
12/16/23 11:50
12/16/23 11:50
Laboratory Results
Total Bilirubin 0.6 mg/dl (0.2-1.3) 12/16/23 11:50
AST 24 U/L (14-36) 12/16/23 11:50
ALT 16 U/L (0-35) 12/16/23 11:50
Alkaline Phosphatase 78 U/L (38-126) 12/16/23 11:50
Troponin I < 0.012 ng/ml 12/16/23 15:18
Data Reviewed
-
Lab Data: Labs Reviewed by me
Old Records: Reviewed
Impression/Plan
-
IMPRESSION:
PLAN:
# Atypical chest pain possibly ACS
-EKG shows sinus bradycardia with heart rate of 58
-Troponin negative
-Cardiology consulted
-324 mg aspirin given
-Patient given Protonix
-N.p.o. past midnight for nuclear stress test tomorrow
Dementia
Chronic anemia
Overactive bladder
-Continue Myrbetriq
Full code
DVT prophylaxis�heparin
N.p.o. past midnight
[2023-12-16] MEDS: PROTONIX IV 40 MG IV (17:09)
[2023-12-16] MEDS: LOW STRENGTH ASPIRIN 324 MG PO (17:09)
[2023-12-16] MEDS: HEPARIN 5000 UNITS SC (20:18)
--- NOTE | 2023-12-16 20:30 | PTCARENOTE ---
Pt transferred from ED. Pt ambulated into room with assistance. VSS, forgetful, bed alarm applied, able to make needs known. Pt oriented to unit, call kay within reach. Will continue with current plan.
[2023-12-17 04:44] VITALS: BP 144/72
--- NOTE | 2023-12-17 04:53 | DOWNTIME ---
There was a [employer] Client Medical Support Specialist Downtime on 12/17/2023 from 0100 to 12/17/2023 at 0439. Downtime documentation of patient's care, including medication administrations, has been reconciled in the electronic record per guidelines. Refer to the
patient's paper chart under the miscellaneous tab to see printed paper medication records and downtime forms.
[2023-12-17 07:30] VITALS: BP 138/65
[2023-12-17 07:58] LABS: % Basophils 0.4 % (0-2); % Immature Granulocytes 0.2 % (0-0.5); % Lymphocytes 44.1 % (20.5-51.1); % Monocytes 8.6 % (1.7-9.3); % Neutrophils 40.7 % (42.2-75.2); Absolute Eosinophils 0.3 10^3/uL (0-0.7); Absolute Lymphocytes 2.2 10^3/uL (1.2-3.4); Absolute Monocytes 0.4 10^3/uL (0.1-0.6); Hematocrit 37.2 % (37.0-47.0); Hemoglobin 11.8 g/dL (12.0-16.0); Mean Corp Hgb Conc. 31.7 g/dL (33.0-37.0); Mean Corpuscular Hgb 23.1 pg (27.0-31.0); Mean Corpuscular Volume 72.8 fL (81.0-99.0); Mean Platelet Volume 9.3 fL (7.4-10.4); Nucleated Red Blood Cells % 0 %; Platelet Count 266 10^3/uL (130-400); Red Blood Cell Count 5.11 10^6/uL (4.20-5.40)
--- NOTE | 2023-12-17 08:39 | W.PN.HOSP.TC ---
Today's Communication/Plan
-
discharge
Assessment / Plan
Assessment / Plan
Physical Exam
General: Well Developed, Well Nourished and No Apparent Distress
HEENT: NormoCephalic, Moist mucous membranes and Atraumatic, PERRLA, EOMI
Respiratory: Clear
Cardiac: S1/S2 and Regular Rhythm; No Murmur or Rub
GI: Soft, Non Tender, Non Distended and Normal Bowel Sounds; No Organomegaly
Musculoskeletal: No Clubbing, No Cyanosis and No Edema
Skin: No Rash
Neuro: AOx3
83F hx Dementia Chronic Anemia Overactive Bladder p/w atypical chest pain symptoms
# Atypical chest pain possible ACS ruled out
-EKG shows sinus bradycardia with heart rate of 58
-Troponin negative x2
-no chest pain since admission/observation
-Cardio eval appreciated normal stress test, stable for discharge cont routine follow up with outpt [employer] Helper Dr Centeno as needed
#atypical chest pain possibly due to GERD
cont protonix daily, new prescription
outpatient follow up with primary recommended.
Dementia
Chronic anemia
Overactive bladder
-Continue Myrbetriq
Full code
DVT prophylaxis�heparin
Medically stable for discharge home with outpatient follow up recommendations
discussed with Patient at bedside and her daughter Sariah over phone
Total Time Preparing Discharge ___50____ minutes including examination of the patient, summary of the hospital stay, instructions for continuing care to all relevant caregivers; and preparation of discharge records, prescriptions, and referral
forms if necessary.
Anticipated Discharge: Today
Subjective/Interval History
-
Date of Service: December 17, 2023
Sitting up comfortably in chair. Denies new acute issues at this time. Reports feeling well. Eager to go home.
Objective Data
-
Labs:
Laboratory Results
12/17/23
07:43
WBC 5.0
Hgb 11.8 L
Hct 37.2
Plt Count 266
Sodium Pending
Potassium Pending
Chloride Pending
Carbon Dioxide Pending
BUN Pending
Creatinine Pending
Glucose Pending
Calcium Pending
Total Bilirubin Pending
AST Pending
ALT Pending
Alkaline Phosphatase Pending
Vital Signs:
Vital Signs
Temp Pulse Resp BP Pulse Ox
97.7 F 65 18 144/72 95
12/17/23 04:44 12/17/23 04:44 12/17/23 04:44 12/17/23 04:44 12/17/23 04:44
[2023-12-17 09:14] LABS: ALT (SGPT) 14 U/L (0-35); AST (SGOT) 27 U/L (14-36); Albumin 4.2 g/dl (3.5-5.0); Alkaline Phosphatase 83 U/L (38-126); Blood Urea Nitrogen 14 mg/dl (7-17); Calcium 9.9 mg/dl (8.4-10.2); Carbon Dioxide 25 mmol/L (22-30); Chloride 103 mmol/L (98-107); Estimated Creatinine Clearance 69 ml/min; Glucose 94 mg/dl (70-99); Potassium 4.5 mmol/L (3.5-5.1); Sodium 138 mmol/L (135-145); Total Bilirubin 0.8 mg/dl (0.2-1.3); Total Protein 7.6 g/dl (6.3-8.2); eGFR > 60.00
[2023-12-17] MEDS: LEXISCAN 0.400000000000000022 MG IV (09:42)
[2023-12-17] MEDS: AMINOPHYLLINE 75 MG IV (10:10)
--- NOTE | 2023-12-17 12:07 | W.PN.CD ---
Today's Communication / Plan
-
- no cardiac contraindication to d/c
- MEDS: no change
- Follow up: Dr. Centeno as needed
Impression / Plan
-
Impression: 83-year-old woman with a prior history of idiopathic pericarditis, anemia who presents with epigastric/lower chest discomfort. EKG and troponin are reassuring
Plan:
Chest pressure
- None since admit
- EKG and troponin are normal
- Sha MPI is normal
Dyslipidemia, LDL 205 in 2021 but refuses statin
Pericardial effusion, without hemodynamic compromise, chronic
Prediabetes, Hgba1c 5.8%
Dementia
Dispo
- no cardiac contraindication to d/c
- MEDS: no change
- Follow up: Dr. Centeno as needed
Subjective: No CP, palps, or dyspnea
Physical Exam
Vital Signs/Labs
Vital Signs
Temp Pulse Resp BP Pulse Ox
36.6 C 59 20 138/65 98
12/17/23 07:30 12/17/23 07:30 12/17/23 07:30 12/17/23 07:30 12/17/23 07:30
12/16/23 12/17/23 12/18/23
06:59 06:59 06:59
Actual Weight 145 lb 1 oz
12/17/23 07:43
12/17/23 07:43
LAB Results
12/16/23 12/16/23 12/16/23
11:50 15:00 15:18
Troponin I < 0.012 Cancelled < 0.012
Physical Exam
Constitutional: No acute distress
EENT: Anicteric and Moist mucous membranes
Cardiovascular: Rhythm & rate is regular, Pedal edema is absent, Systolic murmur absent and Diastolic murmur absent
Respiratory: Respiratory effort normal
GI: Soft, Non tender and Normal bowel sounds
Neuro/Psych: Alert
Data Reviewed
-
Date of Service: December 17, 2023
[2023-12-17] MEDS: PROTONIX 40 MG PO (12:21)
[2023-12-17] MEDS: VITAMIN D3 (cholecalciferol) 50 MCG PO (12:21)
[2023-12-17] MEDS: DETROL LA 4 MG PO (12:22)
[2023-12-17] MEDS: HEPARIN 5000 UNITS SC (12:22)
--- NOTE | 2023-12-17 14:37 | CM ---
regional program manager reviewed patient's chart and met with patient and patient was admitted under OBS, BENEDICT letter provided and signed by patient. Patient resides at [facility] alone is independent with adl's and ambulation, patient only uses a cane to
ambulate outside on uneven surfaces. Patient drives, patient has a prescription plan and patient uses [facility] pharmacy.
PCP: Dr. Mulligan
Plan; Patient to return to [facility] when stable.
[2023-12-17 15:43] VITALS: BP 100/58
--- NOTE | 2023-12-17 16:29 | W.DCSUMMARY ---
Discharge Summary
Discharge Data
Date of Admission: 12/16/23
Date of Discharge: 12/17/23
-
Pending Results: No
Hospital Course
83F Dementia p/w half hour of chest pressure last evening at around 11 PM while sitting. Pain resolved on its own. Patient had another similar episode in morning at 8 AM while lying in bed. Denied any radiation of pain, shortness of breath,
nausea or diaphoresis. She recently had some increased lower extremity edema. Atypical chest pain, patient was placed on observation for possible ACS. EKG shows sinus bradycardia with heart rate of 58. Troponin negative x2. No chest pain since
admission/observation. Cardio evaluated and noted normal stress test, ACS ruled out, stable for discharge, cont routine follow up with outpt [employer] [facility] Centeno as needed. Atypical chest pain possibly due to GERD, Protonix daily was started,
outpatient follow up with primary recommended. Medically stable, patient was discharged home with outpatient follow up recommendations.
Discharge Plan
-
Patient Disposition: Home (Routine Discharge)
Discharge Diagnosis/Procedures: Atypical Chest Pain possibly due to GERD, acute coronary syndrome ruled out, Chronic Anemia, Overactive Bladder
Condition: Good
Diet: Regular
Activity: As tolerated
Driving Restrictions: Not until seen by your Dr
Bathing Restrictions: None
Activity Restrictions/Additional Instructions:
Please follow up with your primary care provider in 1 week of discharge.
Protonix has been prescribed for possible GERD causing chest pain. Paper script has been provided.
Please take medications as prescribed/recommended and follow up with primary care provider and/or other healthcare provider involved in your care for refills and/or further adjustment to your medication regimen as necessary.
Instructions: Acid Reflux and GERD in Adults (DC)
Referrals:
Ervin Centeno MD [Active] -
Soheila Mcclellan DO [Non-Admitting Privileges] - in one week
Prescriptions:
New
pantoprazole 40 mg Tablet,Delayed Release (/Ec)
40 mg PO DAILY 30 Days Qty: 30 0RF
Continued
acetaminophen [Tylenol] 325 mg Tablet
650 mg PO Q6HPRN PRN (Reason: mild pain)
dextromethorphan-guaifenesin [MAXTussin DM] 10-100 mg/5 mL Liquid
10 ml PO Q6HPRN PRN (Reason: cough)
Estring 2 mg (7.5 mcg /24 hour) Ring
1 vag ring VAGINAL [id number]
cholecalciferol (vitamin D3) [Vitamin D3] 25 mcg (1,000 unit) Tablet
50 mcg PO DAILY
diclofenac sodium 1 % Gel
2 g TOPICAL BID
Myrbetriq 50 mg Tablet Extended Release 24 Hr
50 mg PO DAILY
Discharge Orders:
Discharge Patient (As Directed); Ordered 12/17/23
Ordered By: Alexandra Ro
Discharge Date and Time
Discharge Date/Time: 12/17/23 17:28
Print Language: [place] R[place]
== END 2023-12-17 17:28 | disposition home or self-care (01) ==
LOC: 4 WEST ACU 17:10
PROVIDERS: ADMITTING PHYSICIAN Hospitalist; ATTENDING PHYSICIAN Internal Medicine; EMERGENCY PHYSICIAN Emergency Medicine; FAMILY PHYSICIAN Internal Medicine; OTHER PHYSICIAN Internal Medicine Cardiovascular Disease
DX: R07.89 Other chest pain (principal); F03.A0 Unspecified dementia, mild, without behavioral disturbance, psychotic disturbance, mood disturbance, and anxiety; N32.81 Overactive bladder; E78.00 Pure hypercholesterolemia, unspecified; I31.39 Other pericardial effusion (noninflammatory); D56.3 Thalassemia minor; M19.90 Unspecified osteoarthritis, unspecified site; Z87.891 Personal history of nicotine dependence
CPT/HCPCS: 71046; 78452; 80053; 84484; 85025; 87070; 93005; 93017; 99285; A9500; G0378; J2785

== ENCOUNTER → 2024-02-26 12:51 | Outpatient (REF) | payer MEDICARE, OTHER, SELFPAY ==
[2024-02-26 13:57] LABS: ALT (SGPT) 11 U/L (0-35); AST (SGOT) 22 U/L (14-36); Albumin 4.2 g/dl (3.5-5.0); Alkaline Phosphatase 78 U/L (38-126); Blood Urea Nitrogen 25 mg/dl (7-17); Calcium 9.7 mg/dl (8.4-10.2); Carbon Dioxide 32 mmol/L (22-30); Chloride 100 mmol/L (98-107); Glucose 102 mg/dl (70-99); Potassium 3.9 mmol/L (3.5-5.1); Sodium 137 mmol/L (135-145); Total Bilirubin 0.6 mg/dl (0.2-1.3); Total Protein 7.6 g/dl (6.3-8.2)
== END ==
LOC: OLABPATH 12:51
PROVIDERS: ATTENDING PHYSICIAN Nurse Practitioner Gerontology; FAMILY PHYSICIAN Hospitalist
DX: R60.9 Edema, unspecified (principal)
CPT/HCPCS: 36415; 80053

== ENCOUNTER → 2024-03-18 12:11 | Outpatient (REF) | payer MEDICARE, OTHER, SELFPAY ==
[2024-03-18 13:07] LABS: Blood Urea Nitrogen 24 mg/dl (7-17); Carbon Dioxide 31 mmol/L (22-30); Chloride 103 mmol/L (98-107); Glucose 108 mg/dl (70-99); Potassium 3.9 mmol/L (3.5-5.1); Sodium 139 mmol/L (135-145)
== END ==
LOC: OLABMERCHI 12:11
PROVIDERS: ATTENDING PHYSICIAN Hospitalist
DX: R94.4 Abnormal results of kidney function studies (principal); N39.0 Urinary tract infection, site not specified
CPT/HCPCS: 80048

== ENCOUNTER 2024-04-02 07:50 | Emergency (ER) | payer MEDICARE, OTHER, SELFPAY ==
[2024-04-02 07:53] VITALS: BP 146/59
--- NOTE | 2024-04-02 07:53 | ED.GENMED ---
History of Present Illness
General
Chief Complaint: Musculo-Skeletal Complaint
Time Seen by Provider: 04/02/24 07:53
History of Present Illness
History of Present Illness:
HPI: The patient was sitting in his wheelchair at [facility] where she resides, tried to get up in the chair moved and she fell to the ground. She struck her head and also reports right wrist pain. She denies any other injury. She has no neck
pain. She has noted to have some decreased active range of motion of the lower extremities however she reports this is related to osteoarthritis.
EXAM:
GENERAL: Well appearing in no distress
CERVICAL SPINE: No midline c-spine tenderness with excellent AROM
HEAD: There is a small to moderate size hematoma over the left side of the forehead with overlying abrasion
CHEST: No chest wall tenderness, normal heart sounds
LUNGS: Equal lung sounds, no respiratory distress
ABDOMEN: No abdominal tenderness, no peritoneal signs
EXTREMITIES: Normal active range of motion, no tenderness; although she reports right wrist discomfort her physical examination at the right wrist is relatively unremarkable
NEURO: Good strength all extremities, appropriate mental status, normal speech/language; although she is diagnosed with 'dementia' she is answering questions appropriately
TIME OF INITIAL ENCOUNTER: 8 AM
NUMBER AND COMPLEXITY OF PROBLEMS ADDRESSED AT THE ENCOUNTER
� Chronic conditions affecting care: Dementia, has had pericarditis/pericardial effusion, anemia
� Acute Exacerbation and/or Progression of Chronic Illness: This is an acute problem
� Differential Diagnosis includes: Right wrist fracture, right wrist sprain, intracranial bleed, minor head injury, scalp hematoma
AMOUNT AND/OR COMPLEXITY OF DATA TO BE REVIEWED AND ANALYZED
� I performed an independent evaluation of and my interpretation is:
EKG:
CT: CT brain unremarkable
X-rays: Right wrist x-ray personally viewed and is unremarkable
Laboratory Studies: Urinalysis shows 1+ leukocyte esterase and positive nitrite with 6-10 white cells
Other:
� Review of other/old records: The patient was seen here in December 2023 with chest pain and had 2 troponins that were negative.
� Clinical information was obtained by an independent historian: Records from [facility]
� Prescriptions/Medications Considered but not given:
� Further testing considered but not performed:
RISK OF COMPLICATIONS AND/OR MORBIDITY OR MORTALITY OF PATIENT MANAGEMENT
� Social determinants of health affecting care: Resides at [facility]
� Discussion with other providers:
� Escalation of care including admission/observation vs risk of discharge considered: The patient is well-appearing however given advanced age will obtain CT imaging of the brain. CT brain and right wrist imaging unremarkable.
Family requested urinalysis. Urinalysis only questionably abnormal. Will start antibiotics as family very concerned about the possibly of UTI as contributing factor of her fall.
Past History
Past History
ED Past Medical History: Other (Dementia); Negative CAD, GERD, HTN, Hypercholesterolemia, NIDDM or Hypothyroidism
ED Past Surgical History: Other (Cataract removal)
Social History
Tobacco: Former smoker
Alcohol: Occasional (Rare alcohol use)
Drug: None
Personal: (But for 30 years)
Living: alone
Employment: Retired
Family History
Family History: Negative Early CAD, CAD or Sudden
Phy Exam
Physical Exam
Physical Exam:
See HPI
Course
Orders/Labs/Results
Orders:
Orders
04/02/24
CR Wrist - Right Min 3 Views Urgent
Comment:
Reason For Exam: trauma
04/02/24 07:59
CT Head W/o Iv Contrast Urgent
Comment:
Reason For Exam: trauma
04/02/24 08:30
Acetaminophen [Tylenol] 1,000 mg PO NOW STA
04/02/24 09:32
Urinalysis Reflex To Culture Urgent
Date Specimen was Collected: 04/02/24
Time Specimen was Collected: 09:01
Urine Microscopic Reflex Cult Urgent
Urine Culture Urgent
FAISAL Source: U
Specimen Description:
Date Specimen was Collected: 04/02/24
Time Specimen was Collected: 09:01
04/02/24 10:55
Splints/Slings/Crut- Treatment ONCE
Crutches: No
Location: Right
Type of Splint: [place] Wrist
04/02/24 11:15
Cephalexin Monohydrate [Keflex] 500 mg PO NOW STA
Abnormal Lab Results
04/02/24
09:32
Urine Nitrite (Reflex) Positive A
(Negative)
Leukocyte Esterase Rfl 1+ A
(Negative)
Urine Bacteria (Reflex) Few A
(Negative)
Vital Signs
Initial and Last Documented VS:
Initial Vital Signs
Temp Pulse Resp BP Pulse Ox
98.3 F 64 18 146/59 97
04/02/24 07:53 04/02/24 07:53 04/02/24 07:53 04/02/24 07:53 04/02/24 07:53
Last Documented Vital Signs
Temp Pulse Resp BP Pulse Ox
98.3 F 62 17 145/68 96
04/02/24 07:53 04/02/24 08:15 04/02/24 08:15 04/02/24 08:00 04/02/24 08:15
*Critical Care Note
Total Time (30-74mins, 75-104mins- exclusive of procedures): Not Applicable
ED Attending Note
-
Portions of this chart may have been created with voice recognition software.� Occasional wrong word or��sound alike� substitutions may have occurred due to the inherent limitations of voice recognition software.
Discharge Plan
Departure
Patient Disposition: Home (Routine Discharge)
Date of Disposition: 04/02/24
Time of Disposition: 11:16
Patient with high blood pressure during this ER visit?: Yes
Discharge Problem:
Head injury, Right wrist sprain
Prescriptions:
New
cephalexin 500 mg capsule
500 mg PO TID Qty: 15 0RF
No Action
acetaminophen [Tylenol] 325 mg Tablet
650 mg PO Q6HPRN PRN (Reason: mild pain)
dextromethorphan-guaifenesin [MAXTussin DM] 10-100 mg/5 mL Liquid
10 ml PO Q6HPRN PRN (Reason: cough)
Estring 2 mg (7.5 mcg /24 hour) Ring
1 vag ring VAGINAL [id number]
cholecalciferol (vitamin D3) [Vitamin D3] 25 mcg (1,000 unit) Tablet
50 mcg PO DAILY
diclofenac sodium 1 % Gel
2 g TOPICAL BID
Myrbetriq 50 mg Tablet Extended Release 24 Hr
50 mg PO DAILY
pantoprazole 40 mg Tablet,Delayed Release (Dr/Ec)
40 mg PO DAILY 30 Days Qty: 30 0RF
Referrals:
Sariah Paez I., DO [Active] - Follow up in 2-3 days
Sariah Mulligan MD [Family Provider] -
Activity Restrictions/Additional Instructions:
Urinalysis shows only questionable sign of urinary tract infection (this is not a definite urinary tract), urine culture pending. CAT scan of the brain shows no bleeding or other signs of trauma in the brain. X-ray of the right wrist shows no sign
of fracture. However we did give a splint that she can take on and off for comfort. Tylenol is safe to pain. I have also given you the contact information for local orthopedist if needed.
Interventions
Interventions:
*Risk Screen - Suicide Last Done: 04/02/24 07:53
*General Assessment Last Done: 04/02/24 07:53
*Neglect/Abuse Screening Last Done: 04/02/24 07:53
ED-Musculoskeletal Assessment Last Done: 04/02/24 08:22
Discharge Date and Time
Print Language: FAROESE
[2024-04-02 07:54] VITALS: BP 146/59
[2024-04-02 08:00] VITALS: BP 145/68
[2024-04-02] MEDS: TYLENOL 1000 MG PO (08:33)
[2024-04-02 09:49] LABS: Urine Albumin Negative (Neg - Trace); Urine Bilirubin Negative (Negative); Urine Character Clear (Clear); Urine Color Yellow; Urine Glucose Negative (Negative); Urine Ketone Negative (Negative); Urine Leukocyte 1+ (Negative); Urine Nitrite Positive (Negative); Urine Occult Blood Negative (Negative); Urine Urobilinogen Negative (Neg - 1+)
[2024-04-02 10:18] LABS: Urine Bacteria Few (Negative); Urine Red Blood Cell 0-2 /HPF (0-2)
[2024-04-02 11:35] VITALS: BMI 25.1
[2024-04-02] MEDS: KEFLEX 500 MG PO (11:44)
[2024-04-02 12:12] VITALS: BP 132/68
== END 2024-04-02 12:16 | disposition home or self-care (01) ==
LOC: EMR 07:50
PROVIDERS: EMERGENCY PHYSICIAN Emergency Medicine; FAMILY PHYSICIAN Internal Medicine
DX: S09.90XA Unspecified injury of head, initial encounter (principal); S63.501A Unspecified sprain of right wrist, initial encounter; W19.XXXA Unspecified fall, initial encounter; R03.0 Elevated blood-pressure reading, without diagnosis of hypertension
CPT/HCPCS: 99284; 29125; 70450; 73110; 81003; 81015; 87077; 87086; 87186

== ENCOUNTER → 2024-04-15 12:01 | Outpatient (REF) | payer MEDICARE, OTHER, SELFPAY ==
[2024-04-15 12:43] LABS: Blood Urea Nitrogen 23 mg/dl (7-17); Calcium 9.7 mg/dl (8.4-10.2); Carbon Dioxide 30 mmol/L (22-30); Chloride 102 mmol/L (98-107); Glucose 102 mg/dl (70-99); Sodium 138 mmol/L (135-145); eGFR > 60.00
== END ==
LOC: OLABMERCHI 12:01
PROVIDERS: ATTENDING PHYSICIAN Nurse Practitioner Gerontology; FAMILY PHYSICIAN Hospitalist
DX: R94.4 Abnormal results of kidney function studies (principal)
CPT/HCPCS: 36415; 80048

== ENCOUNTER → 2024-04-22 09:33 | Outpatient (REF) | payer MEDICARE, OTHER, SELFPAY ==
[2024-04-22 12:21] LABS: Blood Urea Nitrogen 20 mg/dl (7-17); Calcium 9.2 mg/dl (8.4-10.2); Carbon Dioxide 34 mmol/L (22-30); Chloride 99 mmol/L (98-107); Glucose 107 mg/dl (70-99); Potassium 3.9 mmol/L (3.5-5.1); Sodium 140 mmol/L (135-145)
[2024-04-22 12:28] LABS: NT-proBNP 191 pg/ml
== END ==
LOC: OLABMERCHI 09:33
PROVIDERS: ATTENDING PHYSICIAN Hospitalist
DX: I50.30 Unspecified diastolic (congestive) heart failure (principal); R94.4 Abnormal results of kidney function studies
CPT/HCPCS: 36415; 80048; 83880

== ENCOUNTER 2024-07-03 05:16 | Inpatient (IN) | payer MEDICARE, OTHER, SELFPAY ==
[2024-07-02 19:33] VITALS: BMI 25.0
[2024-07-02 19:37] VITALS: BP 135/50
[2024-07-02 20:10] VITALS: BP 128/66
[2024-07-02 21:00] VITALS: BP 122/55
--- NOTE | 2024-07-02 22:55 | ED.GENMED ---
History of Present Illness
General
Chief Complaint: Change in Mental Status
Source: patient and family
Time Seen by Provider: 07/02/24 22:49
History of Present Illness
History of Present Illness:
83-year-old female presents the emergency department because family is worried that she may have a UTI. She describes symptoms similar to when she had a UTI about a year ago. She has developed visual hallucinations whereby she is seeing snakes as
of today. She is also describing feeling scared and called 911 twice within the last 2 days. She denies any physical complaints. She is eating and drinking as usual. History very limited given patient's dementia.
Past History
Past History
ED Past Medical History: Other (Dementia, arthritis, urinary incontinence); Negative CAD, GERD, HTN, Hypercholesterolemia, NIDDM or Hypothyroidism
ED Past Surgical History: Other (Cataract removal)
Social History
Tobacco: Former smoker
Alcohol: Occasional (Rare alcohol use)
Drug: None
Living: assisted living
Employment: Retired
Family History
Family History: Negative Early CAD, CAD or Sudden
Phy Exam
Physical Exam
Physical Exam:
GENERAL: Alert , in no apparent distress, nontoxic
EYE: pupils equal and reactive, no photophobia
NECK: Supple, no significant adenopathy.
ENT: o/p clr, mmm.
CARDIAC: Regular rate and rhythm .
LUNGS: Clear breath sounds bilaterally, no acute respiratory distress, no wheezes/rales/rhonchi
ABDOMEN: Soft, without focal tenderness, no r/g, no cvat
NEUROLOGICAL: Alert with baseline dementia, grossly nonfocal
SKIN: Warm and dry, skin intact.
MUSCULOSKELETAL: No edema, well perfused.
PSYCH: Normal and appropriate interaction.
Course
Orders/Labs/Results
Orders:
Orders
07/02/24 23:22
Urinalysis Reflex To Culture Urgent
Date Specimen was Collected: 07/02/24
Time Specimen was Collected: 22:52
Urine Microscopic Reflex Cult Urgent
Urine Culture Urgent
FAISAL Source: U
Specimen Description:
Date Specimen was Collected: 07/02/24
Time Specimen was Collected: 22:52
07/02/24 23:44
Basic Metabolic Panel Urgent
Complete Blood Count/No Diff Urgent
07/03/24 00:08
CT Head W/o Iv Contrast Urgent
Reason For Exam: MENTAL STATUS CHANGE
07/03/24 02:27
Acetaminophen [Tylenol] 650 mg .ROUTE .STK-MED ONE
07/03/24 02:30
Acetaminophen [Tylenol] 650 mg PO NOW STA
07/03/24 02:47
0.9% Sodium Chloride 500 ml [Nss] 500 ml IV BOLUS
07/03/24 04:41
Admit/Transfer Patient As Directed
Co-Sign Provider:
Level of Care: Inpatient admission
Assign to:: Medical/Surgical
Physician / Group: Steven
Diagnosis: Hallucinations, NATHAN
Reason for Hospitalization: NATHAN, Hallucinations
Expected length of stay greater than two midnights?: Yes
ELOS- Estimated Length of Stay in days: 2
I certify the patient meets the requirements for IP care: Yes
PRN Pain Medication Management As Directed
May give lesser potent ordered pain med per pt: Yes
preference::
Protocol:: Medication orders for pain may be administered in a
manner that supports deferring to patient preference
when the pt is:
- Requesting an ordered lesser potent pain medication.
Least to most potent pain medications are defined
as: acetaminophen < NSAID < tramadol < opioids
(morphine, oxycodone, hydromorphone).
- Requesting a lesser dose of the same medication IF
ORDERED.
- Requesting a less intrusive route of administration
if both routes are prescribed by the provider (PO <
IV).
07/03/24 04:42
Code Status As Directed
Resuscitation Status: Full Code
07/03/24 Breakfast
Regular
At Your Request: Limited Participation
07/03/24 07:47
Acetaminophen [Tylenol] 650 mg PO Q4HPRN PRN
Lactated Ringers [Lr] 1,000 ml IV 80 mls/hr
07/03/24 07:47
Activity As Directed
Activity Level: Ambulate
With Assistance
I/O [Intake/ Output] As Directed
Frequency: Per unit guidelines
Orthostatic Vital Signs As Directed
Orthostatic VS Frequency: BID
Pneumatic Compression Sleeves As Directed
Type: Knee high
Vital Signs As Directed
Frequency: Per unit guidelines
Weight As Directed
Frequency: Daily
Oxygen Therapy [O2 Therapy] [RESP] Routine
Titrate/Wean O2 to maintain O2 sat greater than (%): 94
Ot Eval And Treat Routine
PT Consult [Pt Eval And Treat] Routine
Activity Level: Ambulate
With Assistance
DX Deep Vein Thrombosis Video Routine
07/03/24 08:00
Cholecalciferol (Vitamin D3) [VITAMIN D3 (cholecalciferol)] 50 mcg PO DAILY
Diclofenac 1% Topical Gel 2 gram TOPICAL BID
Apply 2 or 4 grams as per protocol to the following joints:: Left Knee
07/04/24 06:00
Basic Metabolic Panel IN AM
Complete Blood Count/No Diff IN AM
Abnormal Lab Results
07/02/24 07/02/24
23:22 23:44
Hgb 10.1 L g/dL
(12.0-16.0)
Hct 31.1 L %
(37.0-47.0)
MCV 70.8 L fL
(81.0-99.0)
MCH 23.0 L pg
(27.0-31.0)
MCHC 32.5 L g/dL
(33.0-37.0)
RDW 15.6 H %
(11.5-14.5)
Chloride 96 L mmol/L
(98-107)
Carbon Dioxide 33 H mmol/L
(22-30)
BUN 30 H mg/dl
(7-17)
Creatinine 1.4 H mg/dL
(0.6-1.0)
Glucose 100 H mg/dl
(70-99)
Urine Nitrite (Reflex) Positive A
(Negative)
Leukocyte Esterase Rfl Trace A
(Negative)
Urine Bacteria (Reflex) Many A
(Negative)
07/02/24 23:44
07/02/24 23:44
Vital Signs
Initial and Last Documented VS:
Initial Vital Signs
Temp Resp
98.7 F 18
07/02/24 19:33 07/02/24 19:33
Last Documented Vital Signs
Temp Pulse Resp BP Pulse Ox
98.3 F 61 18 122/52 98
07/03/24 15:10 07/03/24 15:10 07/03/24 15:10 07/03/24 15:10 07/03/24 15:10
*Critical Care Note
Total Time (30-74mins, 75-104mins- exclusive of procedures): Not Applicable
Update Note
Update Note:
Patient presents to the Emergency Department with ___mental status change
Number and Complexity of Problems Addressed at the Encounter
� Chronic conditions affecting care:
� Acute Exacerbation and/or Progression of Chronic Illness:
� Differential Diagnosis includes: But not limited to electrolyte disorder, UTI, etc. etc.
Amount and/or Complexity of Data to be Reviewed and Analyzed
� I performed an independent evaluation of and my interpretation is:
EKG:
CT:
Xrays:
Laboratory Studies:baseline anemia, new renal insufficiency. urine not convincing for uti
Other:
� Review of other/old records reveals: Patient admitted, discharge summary reviewed December 2019 for atypical chest pain possibly due to reflux, ACS ruled out, chronic anemia
� Clinical information was obtained by an independent historian: Daughter and son-in-law who are at bedside
� Prescriptions/Medications Considered but not given:
� Further testing considered but not performed:
Risk of Complications and/or Morbidity or Mortality of Patient Management
� Social determinants of health affecting care:
� Discussion with other providers (PCP, Hospitalists, Consultants, etc):
� Escalation of care including admission/observation vs risk of discharge considered:head ct pending, no focal abnl on exam. However, she does have new renal insufficiency, ivf ordered, will keep pt overnight for obs/continued
fluids/reasssessments. D/w Dr Harris.
ED Attending Note
-
Portions of this chart may have been created with voice recognition software.� Occasional wrong word or��sound alike� substitutions may have occurred due to the inherent limitations of voice recognition software.
Discharge Plan
Departure
Patient Disposition: Admit
Date of Disposition: 07/03/24
Time of Disposition: 03:16
Admit to: Med/Surg
Presentation/result/management discussed w/ accepting MD/DO: Hospitalist
Condition: Fair
Discharge Problem:
Acute renal insufficiency
Interventions
Interventions:
*Risk Screen - Suicide Last Done: 07/03/24 14:10
*General Assessment Last Done: 07/02/24 19:33
*Neglect/Abuse Screening Last Done: 07/02/24 19:33
ED- Fall Risk Assessment Last Done: 07/02/24 19:33
*ED COVID-19 Vaccine History Last Done: 07/02/24 19:33
*Nursing Disposition Last Done: 07/03/24 07:40
ED- Neurological Assessment Last Done: 07/02/24 20:13
ED Swallowing Screen Last Done: 07/02/24 20:13
Discharge Date and Time
Discharge Date/Time: 07/03/24 07:40
[2024-07-02 23:30] LABS: Urine Albumin Negative (Neg - Trace); Urine Bilirubin Negative (Negative); Urine Character Clear (Clear); Urine Color Yellow; Urine Glucose Negative (Negative); Urine Ketone Negative (Negative); Urine Leukocyte Trace (Negative); Urine Nitrite Positive (Negative); Urine Occult Blood Negative (Negative); Urine Specific Gravity 1.015 (<1.030); Urine Urobilinogen Negative (Neg - 1+)
[2024-07-02 23:48] LABS: Urine Bacteria Many (Negative)
[2024-07-02 23:49] LABS: Urine Red Blood Cell None Seen /HPF (0-2)
[2024-07-02 23:55] LABS: Hematocrit 31.1 % (37.0-47.0); Hemoglobin 10.1 g/dL (12.0-16.0); Mean Corp Hgb Conc. 32.5 g/dL (33.0-37.0); Mean Corpuscular Volume 70.8 fL (81.0-99.0); Mean Platelet Volume 9.2 fL (7.4-10.4); Platelet Count 249 10^3/uL (130-400); Red Blood Cell Count 4.39 10^6/uL (4.20-5.40); Red Cell Dist. Width 15.6 % (11.5-14.5); White Blood Cell Count 6.5 10^3/uL (4.8-10.8)
[2024-07-03] VITALS (13 sets, daily range): BP systolic 100–124; BP diastolic 46–63; PULSE 57–64; O2SAT 96; BMI 23.5
[2024-07-03 00:11] LABS: Blood Urea Nitrogen 30 mg/dl (7-17); Calcium 9.4 mg/dl (8.4-10.2); Carbon Dioxide 33 mmol/L (22-30); Chloride 96 mmol/L (98-107); Estimated Creatinine Clearance 30 ml/min; Glucose 100 mg/dl (70-99); Potassium 3.7 mmol/L (3.5-5.1); Sodium 138 mmol/L (135-145)
[2024-07-03] MEDS: TYLENOL 650 MG PO (02:30)
[2024-07-03] MEDS: NSS 500 IV (03:58)
--- NOTE | 2024-07-03 04:43 | HPS.HSE ---
Family Physician
-
Family Physician: Soheila Mcclellan DO
Chief Complaint
-
Confusion
History of Present Illness
Patient is an 83y F with PMH significant for dementia and OAB who presents to ED from local [place] for evaluation of confusion / hallucinations. History obtained from ED staff / NH staff and (somewhat) from patient. NH staff states that patient has
been hallucinating recently (seeing snakes). She has been fearful and has called 911 from the [place] twice in the past two days. Patient reportedly had similar symptoms in the past related to UTI. She was sent to the ED this evening for further
evaluation.
At the time of my examination, patient is resting comfortably. She complains of mild L knee pain - but otherwise has no complaints.
Patient cannot recall why she was sent to the ED.
She denies any focal symptoms including cough, dyspnea, N/V/D, urinary complaints, etc.
Medical History
Past Medical History
Past Medical History: Reports Other
Additional Past Medical History:
Senile Dementia
Overactive Bladder
DJD
Past Surgical History: Reports Other
Additional Past Surgical History:
None Known
Social History
Tobacco: Former Smoker (Remote history of smoking.)
Alcohol: Occasional (Rarely.)
Drug: None
Living: [facility]
Family History
Family History: Not pertinent
Allergies / Home Medications
Allergies reflects when Allergies were last updated in [facility].
Home Medications with original date entered in [facility]
Allergy/Medication List:
Allergies
Allergy/AdvReac Type Severity Reaction Status Date / Time
No Known Allergies Allergy Verified 07/02/24 19:32
Home Medications
acetaminophen 325 mg tablet (Tylenol) 650 mg PO QIDPRN PRN mild pain 12/16/23
cholecalciferol (vitamin D3) 25 mcg (1,000 unit) tablet (Vitamin D3) 50 mcg PO DAILY Supplement 12/16/23
dextromethorphan-guaifenesin 10 mg-100 mg/5 mL oral liquid (MAXTussin DM) 10 ml PO Q6HPRN PRN cough 12/16/23
diclofenac sodium 1 % topical gel 2 g topical BID pain 12/16/23
mirabegron 50 mg tablet,extended release 24 hr (Myrbetriq) 50 mg PO DAILY Urinary Issue 12/16/23
pantoprazole 40 mg tablet,delayed release 40 mg PO DAILY 30 days #30 tabs 12/17/23
furosemide 40 mg tablet 40 mg PO DAILY 07/02/24
Review of Systems
-
History Source: Patient
A 12 point ROS was completed and negative except as noted: Yes
Constitutional: Denies Fever or Chills
Respiratory: Denies Cough or Trouble Breathing
Cardiac: Denies Chest Pain
Abdomen/GI: Denies Abdominal Pain, Nausea, Vomiting or Diarrhea
: Denies Dysuria, Frequency or Flank Pain
Musculoskeletal: Reports Joint Pain (L knee pain) and Edema
Neurological: Denies Dizzy or Headache
Psych: Denies Depression or Anxiety
Physical Exam
Vital Signs
Vital Signs
Temp Resp BP Pulse Ox
98.7 F 18 119/61 95
07/02/24 19:33 07/02/24 19:33 07/03/24 03:16 07/03/24 03:45
Physical Exam
General: Other (83y F in no acute distress.)
HEENT: Moist mucous membranes and PERRLA
Respiratory: Clear; No Wheezes, Rales or Rhonchi
Cardiac: S1/S2 and Regular Rhythm; No Murmur
GI: Soft, Non Tender, Non Distended and Normal Bowel Sounds
Musculoskeletal: No Clubbing, No Cyanosis and Other (1+ pitting edema b/l ankles.)
Neuro: Awake and Alert; No Oriented
Laboratory Results
-
07/02/24 23:44
07/02/24 23:44
Impression/Plan
-
A/P: Patient is an 83y F with PMH significant for senile dementia who presents to ED from local [place] for evaluation of increased confusion / visual hallucinations.
Hallucinations
Senile Dementia
- Suspect that symptoms reflect progression of underlying dementia.
- No specific evidence for any acute infectious process.
- Mild NATHAN - ? contributing to increased confusion - see below.
- Follow for any new / recurrent symptoms.
- Follow for any new focal complaints suggestive of other acute process.
- Consider addition of anxiolytic / mood stabilizing mediations if anxiety / agitation are issues moving forward.
NATHAN
- SCr = 1.4 compared to known baseline of 1.0.
- Hold Lasix.
- Gentle IVFs overnight.
- Follow labs / lytes for improvement.
- Hold PPI for now.
OAB
- No complaints at present.
- Hold Myrbetriq for now.
DVT Prophylaxis: SCDs
Code Status: Full
--- NOTE | 2024-07-03 07:37 | W.PN.HOSP.TC ---
Today's Communication/Plan
-
monitor labs
IVF
PT/OT
Assessment / Plan
Assessment / Plan
A/P: Patient is an 83y F with PMH significant for senile dementia who presents to ED from local [place] for evaluation of increased confusion / visual hallucinations.
Head CT
Hallucinations
Senile Dementia
- Suspect that symptoms reflect progression of underlying dementia. Hold dextromehtorphan - can cause confusion
- No specific evidence for any acute infectious process.
- Mild NATHAN - ? contributing to increased confusion - see below.
- Follow for any new / recurrent symptoms.
- Follow for any new focal complaints suggestive of other acute process.
- Consider addition of anxiolytic / mood stabilizing mediations if anxiety / agitation are issues moving forward.
NATHAN
- SCr = 1.4 compared to known baseline of 1.0.
- Hold Lasix.
- Gentle IVFs overnight.
- Follow labs / lytes for improvement.
GERD
-resume Protonix
OAB
- No complaints at present.
- resume Myrbetriq for now.
DVT Prophylaxis: Lovenox subQ
Code Status: Full
Anticipated Discharge: 24 - 48 hours
Subjective/Interval History
-
Date of Service: July 03, 2024
cannot remember why she came in
overall feeling well
oriented x 3
Objective Data
-
Labs:
Laboratory Results
07/02/24
23:44
WBC 6.5
Hgb 10.1 L
Hct 31.1 L
Plt Count 249
Sodium 138
Potassium 3.7
Chloride 96 L
Carbon Dioxide 33 H
BUN 30 H
Creatinine 1.4 H
Glucose 100 H
Calcium 9.4
Vital Signs:
Vital Signs
Temp Resp BP Pulse Ox
98.7 F 18 111/55 95
07/02/24 19:33 07/02/24 19:33 07/03/24 06:02 07/03/24 06:02
Review of Systems
-
History Source: Patient
All other systems: Reviewed and negative
Physical Exam
-
General: Well Developed, Well Nourished and No Apparent Distress
HEENT: Normocephalic, Atraumatic and Moist Mucous Membranes
Respiratory: Clear to Auscultation; Negative Wheezes, Rales or Rhonchi
Cardiac: Regular Rhythm and S1/S2
GI: Soft, Nontender and Nondistended
Musculoskeletal: No Clubbing, No Cyanosis and No Edema
Skin: Warm and Dry
Neuro: Awake, Alert and Oriented
Data Reviewed
-
Diagnostic Radiology: Report Reviewed by me
Labs: Labs Reviewed by me
[2024-07-03] MEDS: VITAMIN D3 (cholecalciferol) 50 MCG PO (09:28)
[2024-07-03] MEDS: LR 1000 IV (09:29)
[2024-07-03] MEDS: DICLOFENAC 1% TOPICAL GEL 2 GRAM TOPICAL ×2 (09:30→19:46)
[2024-07-03 13:06] LABS: Blood Urea Nitrogen 24 mg/dl (7-17); Carbon Dioxide 29 mmol/L (22-30); Chloride 103 mmol/L (98-107); Estimated Creatinine Clearance 46 ml/min; Glucose 93 mg/dl (70-99); Iron 47 ug/dl (37-170); Potassium 3.9 mmol/L (3.5-5.1); Sodium 140 mmol/L (135-145); eGFR > 60.00
[2024-07-03 13:15] LABS: Percent Saturation 16 % (20-50); Total Iron Binding Capacity 278 ug/dl (265-497)
[2024-07-03] MEDS: PROTONIX 40 MG PO (14:06)
[2024-07-03] MEDS: LOVENOX 30 MG SC (19:10)
[2024-07-03 22:01] LABS: COVID-19 Antigen Negative (Negative)
[2024-07-04 05:18] VITALS: BMI 24.0
[2024-07-04 06:07] LABS: Hematocrit 29.3 % (37.0-47.0); Hemoglobin 9.5 g/dL (12.0-16.0); Mean Corp Hgb Conc. 32.4 g/dL (33.0-37.0); Mean Corpuscular Hgb 22.8 pg (27.0-31.0); Mean Corpuscular Volume 70.4 fL (81.0-99.0); Mean Platelet Volume 9.7 fL (7.4-10.4); Platelet Count 233 10^3/uL (130-400); Red Blood Cell Count 4.16 10^6/uL (4.20-5.40); Red Cell Dist. Width 15.6 % (11.5-14.5)
[2024-07-04 06:32] LABS: Blood Urea Nitrogen 25 mg/dl (7-17); Calcium 9.3 mg/dl (8.4-10.2); Carbon Dioxide 27 mmol/L (22-30); Chloride 104 mmol/L (98-107); Estimated Creatinine Clearance 46 ml/min; Glucose 102 mg/dl (70-99); Potassium 3.8 mmol/L (3.5-5.1); Sodium 141 mmol/L (135-145); eGFR > 60.00
[2024-07-04 07:30] VITALS: BP 120/57
[2024-07-04] MEDS: PROTONIX 40 MG PO (09:05)
[2024-07-04] MEDS: MYRBETRIQ EXTENDED RELEASE 50 MG PO (09:05)
[2024-07-04] MEDS: VITAMIN D3 (cholecalciferol) 50 MCG PO (09:06)
[2024-07-04] MEDS: DICLOFENAC 1% TOPICAL GEL 2 GRAM TOPICAL (09:07)
--- NOTE | 2024-07-04 11:33 | W.PN.HOSP.TC ---
Today's Communication/Plan
-
OK for discharge today
Assessment / Plan
Assessment / Plan
A/P: Patient is an 83y F with PMH significant for senile dementia who presents to ED from local [place] for evaluation of increased confusion / visual hallucinations.
Head CT
Hallucinations
Senile Dementia
- Suspect that symptoms reflect progression of underlying dementia. Hold dextromehtorphan - can cause confusion
- No specific evidence for any acute infectious process.
- Mild NATHAN - ? contributing to increased confusion - see below.
NATHAN
- SCr = 1.4 compared to known baseline of 1.0.
- Hold Lasix - renal function improved
- will make lasix PRN at OR. Discussed with daughter and patient never had shortness of breath. It was started for LE swelling several months ago.
GERD
-resume Protonix
OAB
- No complaints at present.
- resume Myrbetriq for now.
DVT Prophylaxis: Lovenox subQ
Code Status: Full
Anticipated Discharge: Today
Subjective/Interval History
-
Date of Service: July 04, 2024
no new complaints
eating and drinking OK
feels ready to go home
no hallucinations
Objective Data
-
Labs:
Laboratory Results
07/04/24
04:58
WBC 5.0
Hgb 9.5 L
Hct 29.3 L
Plt Count 233
Sodium 141
Potassium 3.8
Chloride 104
Carbon Dioxide 27
BUN 25 H
Creatinine 0.9
Glucose 102 H
Calcium 9.3
Vital Signs:
Vital Signs
Temp Pulse Resp BP Pulse Ox
98.4 F 62 18 120/57 97
07/04/24 07:30 07/04/24 07:30 07/04/24 07:30 07/04/24 07:30 07/04/24 07:30
I&O
07/03/24 07/04/24 07/05/24
07:59 06:59 06:59
Intake Total
Output Total
Balance
Review of Systems
-
History Source: Patient
All other systems: Reviewed and negative
Physical Exam
-
General: Well Developed, Well Nourished and No Apparent Distress
HEENT: Normocephalic, Atraumatic and Moist Mucous Membranes
Respiratory: Clear to Auscultation; Negative Wheezes, Rales or Rhonchi
Cardiac: Regular Rhythm and S1/S2
GI: Soft, Nontender and Nondistended
Musculoskeletal: No Clubbing, No Cyanosis and No Edema
Skin: Warm and Dry
Neuro: Awake, Alert and Oriented
Data Reviewed
-
Diagnostic Radiology: Report Reviewed by me
Labs: Labs Reviewed by me
--- NOTE | 2024-07-04 11:44 | W.DS.TRANS ---
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
-
Discharge Instructions:
Discharge Diagnosis/Procedures acute kidney injury, hallucinations
Diet Regular
Activity As tolerated
Driving Restrictions No driving
Bathing Restrictions None
Blood Work BMP on Friday07/09/24
Other Services VN,PT,OT
Specialty Instructions Weigh Daily
Instructions:
Stand-Alone Forms:
Changes to Home Medications: Yes
Discharge Medications:
DC Medications w/original date entered in I[facility]
acetaminophen 325 mg tablet (Tylenol) 650 mg PO QIDPRN PRN mild pain 12/16/23
cholecalciferol (vitamin D3) 25 mcg (1,000 unit) tablet (Vitamin D3) 50 mcg PO DAILY Supplement 12/16/23
diclofenac sodium 1 % topical gel 2 g topical BID pain 12/16/23
mirabegron 50 mg tablet,extended release 24 hr (Myrbetriq) 50 mg PO DAILY Urinary Issue 12/16/23
pantoprazole 40 mg tablet,delayed release 40 mg PO DAILY 30 days #30 tabs 12/17/23
furosemide 40 mg tablet 40 mg PO MOWEFR Fluid Retention/Swelling #0 tabs 07/04/24
Home Medication Changes
change Lasix from daily to Friday, Friday, Friday
Pending Results: No
--- NOTE | 2024-07-04 12:22 | CM ---
Addendum entered by Danisha Guevara 07/04/24 13:12:
[facility] not accepting patients @ [facility]
Referrals sent to [facility] and [facility] via [employer].
Patient's Daughter, Sariah, notified via phone
Original Note:
Met with patient at bedside and spoke with her daughter via phone to complete initial assessment
Pharmacy verified: [facility] on [facility], [place], [place]
IMM benefit explained to both patient and daughter; form signed @ 1200
Patient has Dementia; was alert and oriented today
Patient lives alone in an apartment @ [facility]; bathroom has stall shower w/grab bar and seat
Per tenzin, patient no longer drives; needs prompting to perform personal care and ADLs; incontinent; ambulates with a cane; goes to the dining room for meals
[facility] will provide transport to appointment; daughter will transport back to facility when discharged
Per daughter, patient will be moving to the [facility] next month
Patient and daughter agreeable with home health/VN recommendation; preference is VNA; referral sent via [facility]
Plan: discharge today to [facility] with Home Health services from [facility]
[2024-07-04 13:03] VITALS: BP 126/62
--- NOTE | 2024-07-04 14:00 | W.DCSUMMARY ---
Discharge Summary
Discharge Data
Date of Admission: 07/03/24
Date of Discharge: 07/04/24
-
Pending Results: No
Hospital Course
Discharging Physician : Dr. Yesica Miranda
Disposition : Home with home health
Primary care physician : Dr. Soheila Mcclellan
Principal Discharge diagnosis : Acute Kidney Injury; Hallucinations in setting of dementia
Hospital Course :
Ms. Radhika Lira is a 83 yo woman with hx dementia, GERD, LE swelling on Lasix presents to the ER for increased confusion and visual hallucinations. Triage vitals stable, labs without leukocytosis. Creatinine 1.4 (baseline 1.0). She was
admitted overnight and given hydration. Renal function returned to baseline. Patient's mentation returned to baseline, no further hallucinations. Unsure if confusion exacerbated by dehydration. Her lasix is decreased from daily to Friday,
and Friday. She will get follow up labs in one week and have close follow up with her PCP.
Time spent on discharge was 31 minutes.
Important imaging findings :
HEAD CT 07/03/24
IMPRESSION:
Stable. No acute intracranial abnormality noted.
Procedure findings :
Discharge Plan
-
Patient Disposition: Home with Home Care
Discharge Diagnosis/Procedures: acute kidney injury, hallucinations
Diet: Regular
Activity: As tolerated
Driving Restrictions: No driving
Bathing Restrictions: None
Blood Work: BMP on Friday07/09/24
Other Services: VN, PT and OT
Specialty Instructions: Weigh Daily- Call MD for wt gain/loss 3 lbs overnight/5 lbs in 1 week
Referrals:
Soheila Mcclellan, DO [Family Provider] - in less than 1 week
Additional Discharge Medication Instructions: change Lasix from daily to Friday, Friday, Friday
Prescriptions:
Continued
acetaminophen [Tylenol] 325 mg Tablet
650 mg PO QIDPRN PRN (Reason: mild pain)
cholecalciferol (vitamin D3) [Vitamin D3] 25 mcg (1,000 unit) Tablet
50 mcg PO DAILY
diclofenac sodium 1 % Gel
2 g TOPICAL BID
mirabegron [Myrbetriq] 50 mg Tablet Extended Release 24 Hr
50 mg PO DAILY
pantoprazole 40 mg Tablet,Delayed Release (Dr/Ec)
40 mg PO DAILY 30 Days Qty: 30 0RF
Changed
furosemide 40 mg tablet
40 mg PO MOWEFR Qty: 0 0RF
Discontinued
dextromethorphan-guaifenesin [MAXTussin DM] 10-100 mg/5 mL Liquid
10 ml PO Q6HPRN PRN (Reason: cough)
Discharge Orders:
Discharge Patient (As Directed); Ordered 07/04/24
Ordered By: Yesica Miranda
Discharge Date and Time
Print Language: BOTSWANAN
== END 2024-07-04 16:32 | disposition home health service (06) | DRG 683 ==
LOC: 4 WEST ACU 05:16
PROVIDERS: ADMITTING PHYSICIAN Hospitalist; ATTENDING PHYSICIAN Student in an Organized Health Care Education/Training Program; EMERGENCY PHYSICIAN Emergency Medicine; FAMILY PHYSICIAN Hospitalist
DX: N17.9 Acute kidney failure, unspecified (principal); F03.92 Unspecified dementia, unspecified severity, with psychotic disturbance; N32.81 Overactive bladder; R32 Unspecified urinary incontinence; R44.1 Visual hallucinations; E86.0 Dehydration; K21.9 Gastro-esophageal reflux disease without esophagitis; Z87.891 Personal history of nicotine dependence; Z79.899 Other long term (current) drug therapy; Z11.52 Encounter for screening for COVID-19
CPT/HCPCS: 70450; 80048; 81003; 81015; 83540; 83550; 85027; 87077; 87086; 87186; 87811; 96360; 97116; 97162; 97166; 99285

== ENCOUNTER → 2024-07-15 10:07 | Outpatient (REF) | payer MEDICARE, OTHER, SELFPAY ==
[2024-07-15 11:38] LABS: Blood Urea Nitrogen 22 mg/dl (7-17); Calcium 9.6 mg/dl (8.4-10.2); Carbon Dioxide 31 mmol/L (22-30); Chloride 100 mmol/L (98-107); Glucose 107 mg/dl (70-99); Potassium 3.8 mmol/L (3.5-5.1); Sodium 143 mmol/L (135-145); eGFR > 60.00
== END ==
LOC: OLABMERCHI 10:07
PROVIDERS: ATTENDING PHYSICIAN Hospitalist
DX: E78.00 Pure hypercholesterolemia, unspecified (principal)
CPT/HCPCS: 36415; 80048

== ENCOUNTER 2024-08-12 08:06 | Emergency (ER) | payer OTHER, SELFPAY ==
[2024-08-12 08:13] VITALS: BMI 24.6
[2024-08-12 08:14] VITALS: BP 157/73
[2024-08-12 08:16] VITALS: BP 157/73
--- NOTE | 2024-08-12 08:24 | ED.GENMED ---
History of Present Illness
General
Chief Complaint: Fall
Source: patient and ambulance crew
Time Seen by Provider: 08/12/24 08:14
History of Present Illness
History of Present Illness:
83-year-old female with past medical history of dementia presenting to the emergency department via EMS from [facility] for evaluation of an accidental slip and fall resulting in mild head injury earlier this morning. Patient is unable to
recall the time of the injury but otherwise notes she did not have any loss consciousness, vomiting, visual changes. She does note some mild pain to the left little toe from the fall but otherwise no other extremity related injuries. Denies any
use of anticoagulants. No other concerns presently
Past History
Past History
ED Past Medical History: Other (Dementia, arthritis, urinary incontinence); Negative CAD, GERD, HTN, Hypercholesterolemia, NIDDM or Hypothyroidism
ED Past Surgical History: Other (Cataract removal)
Social History
Tobacco: Former smoker
Alcohol: Occasional (Rare alcohol use)
Drug: None
Personal: (But for 30 years)
Living: assisted living
Employment: Retired
Family History
Family History: Negative Early CAD, CAD or Sudden
Review of Systems
Review of Systems
All Other Systems: ROS reviewed and negative except as documented in HPI and ROS
Phy Exam
Physical Exam
Physical Exam:
GENERAL: Alert , in no apparent distress
HEAD: NCAT
EYE: clear conjunctiva
NECK: Supple, no midline ttp
ENT: o/p clr, mmm.
CARDIAC: Regular rate and rhythm .
LUNGS: Clear breath sounds bilaterally, no acute respiratory distress, no wheezes/rales/rhonchi
ABDOMEN: Soft, without focal tenderness, no r/g, no cvat
NEUROLOGICAL: Alert and oriented to person, place, and time
SKIN: Warm and dry, skin intact.
MUSCULOSKELETAL: trace edema b/l feet, well perfused. no signs of trauma
PSYCH: Normal and appropriate interaction.
Scores
Heart Failure Risk
Heart Failure Risk Score: Not Applicable
Heart Score for Chest Pain Patients
STEMI patient?: Not applicable
Withdrawal Assessment of Alcohol
Withdrawal Assessment Completed?: Not applicable
Course
Orders/Labs/Results
Orders:
Orders
08/12/24 08:17
CR Foot - Left Min 3 Views Urgent
Comment:
Reason For Exam: little toe pain, fall
08/12/24 08:18
CT Head W/o Iv Contrast Urgent
Comment:
Reason For Exam: fall, head injury, dementia
08/12/24 10:15
Urinalysis Reflex To Culture Urgent
Date Specimen was Collected: 08/12/24
Time Specimen was Collected: 10:12
Urine Microscopic Reflex Cult Urgent
Urine Culture Urgent
FAISAL Source: U
Specimen Description:
Date Specimen was Collected: 08/12/24
Time Specimen was Collected: 10:12
Abnormal Lab Results
08/12/24
10:15
Urine Nitrite (Reflex) Positive A
(Negative)
Leukocyte Esterase Rfl 2+ A
(Negative)
Urine RBC 3-6 A /HPF
(0-2)
Urine WBC (Reflex) 80-90 A /HPF
(0-5)
Urine Bacteria (Reflex) Many A
(Negative)
Vital Signs
Initial and Last Documented VS:
Initial Vital Signs
Pulse Ox
95
08/12/24 08:13
Last Documented Vital Signs
Temp Pulse Resp BP Pulse Ox
97.5 F 58 14 152/84 96
08/12/24 08:16 08/12/24 08:16 08/12/24 08:14 08/12/24 10:15 08/12/24 10:04
MDM/Problems Addressed
Differential Diagnosis Includes:
Mechanical trip and fall, concussion, intracranial bleeding, calvarial fracture, toe contusion/fracture
MDM/Problems Addressed:
83-year-old female presenting to the emergency department for evaluation following an accidental slip and fall with reported head injury. Patient shows no obvious signs of head injury. Given her mild dementia will obtain a CT of the head to
further evaluate. X-ray of the foot ordered as well. Patient declining anything for pain.
*Radiology
Radiology exam reviewed: preliminary read by ED provider (no fracture) and radiology read reviewed (no ICH)
*Pulse Oximetry
Patient hypoxic: no
*Critical Care Note
Total Time (30-74mins, 75-104mins- exclusive of procedures): Not Applicable
Patient Management
Escalation/DeEscalation of care consider admission/obs:
Patient's imaging unremarkable. Daughter came to the bedside and notes that patient did have some mild right lower back discomfort as well however there were no signs of trauma to this area. Urine was noted to be a little bit cloudy and patient
urinated so a sample was sent noted to be nitrite positive with 80-90 white blood cells per high-power field. Will treat patient for urinary tract infection. Previous culture report showed E. coli that was pansensitive. 5-day course of Augmentin
sent to pharmacy. Patient and daughter agreeable to return precautions to the ER.
ED Attending Note
-
Portions of this chart may have been created with voice recognition software.� Occasional wrong word or��sound alike� substitutions may have occurred due to the inherent limitations of voice recognition software.
Discharge Plan
Departure
Patient Disposition: Home (Routine Discharge)
Date of Disposition: 08/12/24
Time of Disposition: 10:52
Patient with high blood pressure during this ER visit?: Yes
Discharge Problem:
Accidental fall, UTI (urinary tract infection)
Instructions: Urinary tract infection - Discharge instructions
Prescriptions:
New
amoxicillin-pot clavulanate 875-125 mg tablet
1 tab PO BID 5 Days Qty: 10 0RF
No Action
acetaminophen [Tylenol] 325 mg Tablet
650 mg PO QIDPRN PRN (Reason: mild pain)
cholecalciferol (vitamin D3) [Vitamin D3] 25 mcg (1,000 unit) Tablet
50 mcg PO DAILY
diclofenac sodium 1 % Gel
2 g TOPICAL BID
mirabegron [Myrbetriq] 50 mg Tablet Extended Release 24 Hr
50 mg PO DAILY
pantoprazole 40 mg Tablet,Delayed Release (Dr/Ec)
40 mg PO DAILY 30 Days Qty: 30 0RF
furosemide 40 mg tablet
40 mg PO MOWEFR Qty: 0 0RF
Referrals:
Soheila Mcclellan, [Non-Admitting Privileges] -
Interventions
Interventions:
*Risk Screen - Suicide Last Done: 08/12/24 08:24
*General Assessment Last Done: 08/12/24 08:22
*Neglect/Abuse Screening Last Done: 08/12/24 08:24
*ED COVID-19 Vaccine History Last Done: 08/12/24 08:22
ED-Musculoskeletal Assessment Last Done: 08/12/24 10:57
ED- Neurological Assessment Last Done: 08/12/24 10:56
ED-Skin Assessment Last Done: 08/12/24 10:57
Discharge Date and Time
Print Language: CHILEAN
[2024-08-12 10:15] VITALS: BP 152/84
[2024-08-12 10:24] LABS: Urine Albumin Negative (Neg - Trace); Urine Bilirubin Negative (Negative); Urine Character Slightly Cloudy (Clear); Urine Color Yellow; Urine Glucose Negative (Negative); Urine Ketone Negative (Negative); Urine Leukocyte 2+ (Negative); Urine Nitrite Positive (Negative); Urine Occult Blood Negative (Negative); Urine Specific Gravity 1.015 (<1.030); Urine Urobilinogen Negative (Neg - 1+); Urine pH 6.5 (5.0-9.0)
[2024-08-12 10:41] LABS: Urine Squamous Cell >30 /LPF (Few)
[2024-08-12 10:42] LABS: Urine Urothelial Cell 0-2 /LPF (FEW)
[2024-08-12 10:44] LABS: Urine Bacteria Many (Negative); Urine White Cell 80-90 /HPF (0-5)
[2024-08-12 10:45] LABS: Urine Hyaline Cast 0-2 /LPF (0-2)
[2024-08-12 11:00] VITALS: BP 141/73
[2024-08-12 12:17] VITALS: BP 131/76
[2024-08-12 12:22] VITALS: BP 131/76
== END 2024-08-12 13:31 | disposition home or self-care (01) ==
LOC: EMR 08:06
PROVIDERS: Physician Assistant Medical; EMERGENCY PHYSICIAN Student in an Organized Health Care Education/Training Program; FAMILY PHYSICIAN Family Medicine
DX: N39.0 Urinary tract infection, site not specified (principal); M54.50 Low back pain, unspecified; M79.675 Pain in left toe(s); W01.0XXA Fall on same level from slipping, tripping and stumbling without subsequent striking against object, initial encounter; E11.9 Type 2 diabetes mellitus without complications; E78.00 Pure hypercholesterolemia, unspecified; F03.A0 Unspecified dementia, mild, without behavioral disturbance, psychotic disturbance, mood disturbance, and anxiety; I10 Essential (primary) hypertension; K21.9 Gastro-esophageal reflux disease without esophagitis; Z87.891 Personal history of nicotine dependence
CPT/HCPCS: 99284; 70450; 73630; 81003; 81015; 87086

== ENCOUNTER 2025-03-12 02:46 | Inpatient (IN) | payer MEDICARE, OTHER, SELFPAY ==
[2025-03-11 21:57] VITALS: BMI 25.8
[2025-03-11 22:00] VITALS: BP 163/68
--- NOTE | 2025-03-11 22:47 | ED.GENMED ---
History of Present Illness
General
Chief Complaint: Fall
Source: patient
Exam Limitations: none
Time Seen by Provider: 03/11/25 22:37
History of Present Illness
History of Present Illness:
See MDM
Past History
Past History
ED Past Medical History: Other (Dementia, arthritis, urinary incontinence); Negative CAD, GERD, HTN, Hypercholesterolemia, NIDDM or Hypothyroidism
ED Past Surgical History: Other (Cataract removal)
Social History
Tobacco: Former smoker
Alcohol: Occasional (Rare alcohol use)
Drug: None
Personal: (But for 30 years)
Living: assisted living
Employment: Retired
Family History
Family History: Negative Early CAD, CAD or Sudden
Phy Exam
Physical Exam
Physical Exam:
See MDM
Course
Orders/Labs/Results
Orders:
Orders
03/11/25 22:46
CT Head W/o Iv Contrast Urgent
Comment:
Reason For Exam: fall, head injury
Morphine Sulfate 4 mg IV NOW STA
Hip, Right 2-3 Views [CR Hip - RT w/wo Pel 2-3 Vw*] Urgent
Comment:
Reason For Exam: Fall, R hip pain
Include a pelvis x-ray?: Yes
03/11/25 23:39
Complete Blood Count/With Diff Urgent
PTT Urgent
Prothrombin Time Urgent
03/11/25 23:49
Consult Orthopedic [ORTHOPEDIC CONSULT] Routine
Consulting Provider: Robel Rowell
Was physician already notified: Yes
03/11/25 23:51
ABO2 Routine
BBK Wristband Number:
Associate notified that ABO2 has been ordered: [id number]
Date: 03/11/25
Time: 23:52
Senior Web Engineer ID: [id number]
03/11/25 23:53
Comprehensive Metabolic Panel Urgent
03/12/25 00:21
Type+Screen Stat
BBK Wristband Number:
Abnormal Lab Results
03/11/25
23:39
Hgb 10.4 L g/dL
(12.0-16.0)
Hct 32.4 L %
(37.0-47.0)
MCV 71.7 L fL
(81.0-99.0)
MCH 23.0 L pg
(27.0-31.0)
MCHC 32.1 L g/dL
(33.0-37.0)
RDW 16.3 H %
(11.5-14.5)
Lymphocytes % 19.1 L %
(20.5-51.1)
03/11/25 23:39
Vital Signs
Initial and Last Documented VS:
Initial Vital Signs
Temp
98.7 F
03/11/25 21:57
Last Documented Vital Signs
Temp Pulse Resp BP Pulse Ox
98.7 F 78 17 128/65 94
03/11/25 21:57 03/12/25 00:04 03/12/25 00:04 03/12/25 00:04 03/12/25 00:04
MDM/Problems Addressed
Differential Diagnosis Includes:
HPI and MDM Narrative:
84-year-old female presenting for evaluation of right hip pain and head injury after fall. Patient apparently slid off the edge of the bed but somehow hit the front of her head. She is having trouble ambulating due to right hip pain. On exam, she
does have tenderness to the right hip. There is small abrasion to her forehead. Will obtain CT head given her age and injury. Will obtain hip x-ray. If hip x-ray negative, I have low threshold to obtain CT given her inability to bear weight
Physical exam
General: Well appearing and non-toxic
HEENT: protecting airway. Abrasion to central forehead
Neck: appears supple
CV: No evidence of cyanosis
Resp: No accessory muscle use
Abd: Non-distended
Extremities: Mild pitting edema to bilateral lower extremities. Tenderness to right hip. Pelvis stable
Neuro: alert
Psych: Normal affect
Skin: Intact
Problems Addressed including Acute and Chronic Conditions affecting care:
1. Head injury
Acuity: acute
Prognosis: stable
Details: Will obtain CT head
2. Right hip injury
Acuity: acute
Prognosis: stable
Details: Will obtain hip and pelvic x-ray
Updates
X-ray concerning for subcapital hip fracture. Will text orthopedics and
Differential Diagnosis (but not limited to): Contusion, intracranial hemorrhage, hip fracture, hip contusion
Testing considered:
Drug therapy (if applicable): OTC meds, please see d/c instruction regarding Rx drugs
Amount and/or Complexity of Data Reviewed
Clinical info obtained from: Patient
External data reviewed: N/A
Labs I independently reviewed (but not limited to): Mild anemia
Radiology: X-ray independently reviewed: Right hip consistent with subcapital hip fracture
Pulse Ox: not hypoxic
EKG independently reviewed: N/A
Ed Special Education Teacher: N/A
Critical Care: N/A
Risk of Complication:
Social Determinants of health: Good social support
Discussed with other providers: Hospitalist
Escalation of Care includes Admit/Obs: Given hip fracture, will admit
Occasional wrong word or 'sound a like' substitutions may have occurred due to the inherent limitations of voice recognition software. Read the chart carefully and recognize, using context, where substitutions have occurred.
*Pulse Oximetry
SaO2: 95
Patient hypoxic: no
*Critical Care Note
Total Time (30-74mins, 75-104mins- exclusive of procedures): Not Applicable
ED Attending Note
-
Portions of this chart may have been created with voice recognition software.� Occasional wrong word or��sound alike� substitutions may have occurred due to the inherent limitations of voice recognition software.
Discharge Plan
Departure
Patient Disposition: Admit
Date of Disposition: 03/12/25
Time of Disposition: 00:32
Admit to: Med/Surg
Presentation/result/management discussed w/ accepting MD/DO: Hospitalist
Discharge Problem:
Subcapital fracture of right hip
Prescriptions:
No Action
acetaminophen [Tylenol] 325 mg Tablet
650 mg PO QIDPRN PRN (Reason: mild pain)
cholecalciferol (vitamin D3) [Vitamin D3] 25 mcg (1,000 unit) Tablet
50 mcg PO DAILY
diclofenac sodium 1 % Gel
2 g TOPICAL BID
mirabegron [Myrbetriq] 50 mg Tablet Extended Release 24 Hr
50 mg PO DAILY
pantoprazole 40 mg Tablet,Delayed Release (Dr/Ec)
40 mg PO DAILY 30 Days Qty: 30 0RF
furosemide 40 mg tablet
40 mg PO MOWEFR Qty: 0 0RF
amoxicillin-pot clavulanate 875-125 mg tablet
1 tab PO BID 5 Days Qty: 10 0RF
Referrals:
Blade Padilla MD [Family Provider, Family Practice]
Interventions
Interventions:
*Risk Screen - Suicide Last Done: 03/11/25 22:03
*General Assessment Last Done: 03/11/25 22:02
*Neglect/Abuse Screening Last Done: 03/11/25 22:03
*ED COVID-19 Vaccine History Last Done: 03/11/25 22:02
ED-Musculoskeletal Assessment Last Done: 03/11/25 22:45
ED- Neurological Assessment Last Done: 03/11/25 22:45
ED-Skin Assessment Last Done: 03/11/25 22:45
Discharge Date and Time
Print Language: BELARUSIAN
[2025-03-11 23:00] VITALS: BP 156/72
[2025-03-11] MEDS: MORPHINE SULFATE 4 MG IV (23:42)
[2025-03-11 23:46] LABS: Hematocrit 32.4 % (37.0-47.0); Hemoglobin 10.4 g/dL (12.0-16.0); Mean Corp Hgb Conc. 32.1 g/dL (33.0-37.0); Mean Corpuscular Volume 71.7 fL (81.0-99.0); Nucleated Red Blood Cells % 0 %; Platelet Count 286 10^3/uL (130-400); Red Cell Dist. Width 16.3 % (11.5-14.5)
[2025-03-11 23:59] LABS: INR 1.09; PT 14.5 Sec (11.4-14.6)
[2025-03-12] VITALS (9 sets, daily range): BP systolic 119–149; BP diastolic 50–76; PULSE 67; O2SAT 97–98
[2025-03-12] LABS: APTT 32.9 Sec (23.4-35.0)
[2025-03-12 00:35] LABS: ALT (SGPT) 15 U/L (0-35); AST (SGOT) 30 U/L (14-36); Albumin 3.9 g/dl (3.5-5.0); Alkaline Phosphatase 90 U/L (38-126); Blood Urea Nitrogen 19 mg/dl (7-17); Calcium 9.0 mg/dl (8.4-10.2); Carbon Dioxide 25 mmol/L (22-30); Chloride 108 mmol/L (98-107); Estimated Creatinine Clearance 68 ml/min; Glucose 138 mg/dl (70-99); Potassium 4.5 mmol/L (3.5-5.1); Sodium 136 mmol/L (135-145); Total Protein 7.5 g/dl (6.3-8.2); eGFR > 60.00
--- NOTE | 2025-03-12 02:38 | HPS.HSE ---
Family Physician
-
Family Physician: Blade Padilla
Chief Complaint
-
Fall
History of Present Illness
Patient is an 84y F with PMH significant for dementia and OAB who presents to ED for evaluation s/p fall. Patient states that she was seated on the edge of her bed at nursing facility speaking with some residents when she somehow fell from the
bed. She notes that she landed on her R side. Her head struck the floor. She denies losing consicousness. She denies any prodrome of chest pain, dyspnea, etc.
On evaluation in the ED, patient is noted to have R subcapital hip fracture.
Medical History
Past Medical History
Past Medical History: Reports Other
Additional Past Medical History:
Senile Dementia
Overactive Bladder
DJD
GERD
Thalassemia trait
Past Surgical History: Reports Other
Additional Past Surgical History:
Cataracts
Tubal Ligation
Social History
Tobacco: Former Smoker (Remote history of smoking.)
Alcohol: Occasional (Rarely.)
Drug: None
Living: [facility]
Family History
Family History: Not pertinent
Allergies / Home Medications
Allergies reflects when Allergies were last updated in [facility].
Home Medications with original date entered in [facility]
Allergy/Medication List:
Allergies
Allergy/AdvReac Type Severity Reaction Status Date / Time
No Known Allergies Allergy Verified 07/02/24 19:32
Home Medications
acetaminophen 325 mg tablet (Tylenol) 650 mg PO QIDPRN PRN mild pain 12/16/23
diclofenac sodium 1 % topical gel 2 g topical BID pain 12/16/23
mirabegron 50 mg tablet,extended release 24 hr (Myrbetriq) 50 mg PO DAILY Urinary Issue 12/16/23
pantoprazole 40 mg tablet,delayed release 40 mg PO DAILY 30 days #30 tabs 12/17/23
cholecalciferol (vitamin D3) 50 mcg (2,000 unit) tablet (Vitamin D3) 50 mcg PO DAILY 03/12/25
ondansetron 4 mg disintegrating tablet 4 mg PO Q8H PRN nausea 03/12/25
Review of Systems
-
History Source: Patient
A 12 point ROS was completed and negative except as noted: Yes
Constitutional: Denies Fever or Chills
Respiratory: Denies Cough or Trouble Breathing
Cardiac: Denies Chest Pain or Palpitations
Abdomen/GI: Denies Abdominal Pain, Nausea, Vomiting or Diarrhea
: Denies Dysuria or Frequency
Musculoskeletal: Reports Joint Pain; Denies Edema
Neurological: Reports Headache; Denies Dizzy, Weakness or Numbness
Psych: Denies Depression or Anxiety
Physical Exam
Vital Signs
Vital Signs
Temp Pulse Resp BP Pulse Ox
98.7 F 83 20 136/64 92
03/11/25 21:57 03/12/25 02:15 03/12/25 02:15 03/12/25 02:00 03/12/25 02:00
Physical Exam
General: Other (84y F in no acute distress.)
HEENT: Moist mucous membranes and PERRLA
Respiratory: Clear; No Wheezes, Rales or Rhonchi
Cardiac: S1/S2 and Regular Rhythm; No Murmur
GI: Soft, Non Tender, Non Distended and Normal Bowel Sounds
Musculoskeletal: No Clubbing, No Cyanosis and Other (2+ pitting edema b/l LEs. Tenderness in the R groin area. No significant malrotation of RLE.)
Neuro: Awake and Alert
Laboratory Results
-
03/11/25 23:39
03/12/25 00:01
Laboratory Results
PT 14.5 Sec (11.4-14.6) 03/11/25 23:39
INR 1.09 03/11/25 23:39
APTT 32.9 Sec (23.4-35.0) 03/11/25 23:39
Total Bilirubin 0.7 mg/dl (0.2-1.3) 03/12/25 00:01
AST 30 U/L (14-36) 03/12/25 00:01
ALT 15 U/L (0-35) 03/12/25 00:01
Alkaline Phosphatase 90 U/L (38-126) 03/12/25 00:01
Impression/Plan
-
A/P: Patient is an 84y F with PMH significant for dementia and OAB who presents to ED for evaluation following at fall at [place].
Right Hip Fracture
- Admit for further evaluation and treatment.
- Pain control, supportive care, bedrest overnight.
- Ortho evaluation in the AM for operative repair.
- Patient on no blood thinners, etc.
- Denies prior h/o CV disease, surgical complications, etc.
- Patient is at increased risk for complications primarily due to age / dementia.
- Benefits of planned procedure outweigh the potential risks and patient is OK to proceed to OR without additional pre-op evaluation(s).
- Post-op care per Ortho.
Fall at Home
Head Injury
- CT head in the ED was unremarkable.
- Minor abrasion on exam - not other abnormality.
- No significant prodrome, LOC, etc.
- PT eval post-op.
Microcytic Anemia
Thalassemia Trait
- Stable. Hgb is at / near known baseline.
- Will check iron studies for any correctable deficiency.
- Follow H&H chintan-operatively and transfuse if needed.
Senile Dementia
- Stable. No agitation / abnormal behaviors.
- Follow for any changes during acute stay.
OAB
- Stable. Hold Myrbetriq acutely.
DVT Prophylaxis: SCDs
Code Status: Full
[2025-03-12] MEDS: MORPHINE SULFATE 2 MG IV (05:30)
--- NOTE | 2025-03-12 05:30 | PTCARENOTE ---
Patient is an 84y F arrived from ED at 04:30 Pt lives at [facility], fell off her bed causing a R Hip fx. PMH of dementia, pericardial effusion, pericarditis, stress incontinence, UTIs, urinary retention, shingles, anemia, arthritis,
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 Patient AOx3, but forgetful, pt given pain medication, is on a static overlay with a bed alarm & call light in reach, care on going.
[2025-03-12 06:22] LABS: Hematocrit 31.6 % (37.0-47.0); Hemoglobin 9.9 g/dL (12.0-16.0); Mean Corp Hgb Conc. 31.3 g/dL (33.0-37.0); Mean Corpuscular Volume 73.0 fL (81.0-99.0); Platelet Count 267 10^3/uL (130-400); Red Cell Dist. Width 16.0 % (11.5-14.5)
[2025-03-12 06:46] LABS: Blood Urea Nitrogen 15 mg/dl (7-17); Calcium 9.1 mg/dl (8.4-10.2); Carbon Dioxide 24 mmol/L (22-30); Chloride 105 mmol/L (98-107); Estimated Creatinine Clearance 58 ml/min; Glucose 120 mg/dl (70-99); Iron 25 ug/dl (37-170); Potassium 4.3 mmol/L (3.5-5.1); Sodium 137 mmol/L (135-145); eGFR > 60.00
[2025-03-12 06:56] LABS: Total Iron Binding Capacity 315 ug/dl (265-497)
[2025-03-12] MEDS: VITAMIN D3 (cholecalciferol) 50 MCG PO (08:33)
[2025-03-12] MEDS: TYLENOL 1000 MG PO ×3 (08:33→21:01)
[2025-03-12] MEDS: PROTONIX 40 MG PO (08:33)
--- NOTE | 2025-03-12 08:41 | CON.ORTHO ---
Consultation
-
Date/Time Consultation Requested: March 25/2349
Date/Time Consultation Performed: 12July
Requesting Provider: Robi Cullen
Performing Provider: Mendy Rowell
Reason for Consultation: Right hip pain, r/o fracture
Consultation - Orthopedics
History
History of Present Illness:
Patient is an 84y F with PMH significant for dementia and OAB who presents to ED for evaluation s/p fall. Patient states that she was seated on the edge of her bed at nursing facility speaking with some residents when she somehow fell from the
bed. She notes that she landed on her R side. Her head struck the floor. She denies LOC or headache. She denies any prodrome. Xrays revealed a questionable right hip fracture. She has been admitted, but a correlating CT was requested due to xray
findings. We have been requested in consult given her xray findings
Past Medical History:
Senile Dementia
Overactive Bladder
DJD
GERD
Thalassemia trait
Past Surgical History:
Cataracts
Tubal Ligation
Social History:
Tobacco: Former Smoker (Remote history of smoking.)
Alcohol: Occasional (Rarely.)
Drug: None
Living: Long-Term
Family History:
Not pertinent
ROS:
12 point negative except those mentioned in the HPI
Allergies / Home Medications
Allergy/AdvReac Type Severity Reaction Status Date / Time
No Known Allergies Allergy Verified 07/02/24 19:32
�Medication �Instructions �Recorded
acetaminophen 325 mg tablet 650 mg PO QIDPRN PRN mild pain 12/16/23
(Tylenol)
diclofenac sodium 1 % topical gel 2 g topical BID pain 12/16/23
mirabegron 50 mg tablet,extended 50 mg PO DAILY Urinary Issue 12/16/23
release 24 hr (Myrbetriq)
pantoprazole 40 mg tablet,delayed 40 mg PO DAILY 30 days #30 tabs 12/17/23
release
cholecalciferol (vitamin D3) 50 50 mcg PO DAILY 03/12/25
mcg (2,000 unit) tablet (Vitamin
D3)
ondansetron 4 mg disintegrating 4 mg PO Q8H PRN nausea 03/12/25
tablet
Vital Signs / Lab Results
Temp Pulse Resp BP Pulse Ox
98.3 F 78 18 119/54 96
03/12/25 07:25 03/12/25 07:25 03/12/25 07:25 03/12/25 07:25 03/12/25 07:25
03/12/25 05:40
03/12/25 05:40
Assessment / Plan
PE: Afeb. Bedrest. Right hip skin intact. LL are equal. Some discomfort to palpation about the right hip. [place] without significant pain. Deferred ROM due to questionable nondisplaced fracture. Knee nontender. Calf supple. DNVI RLE
Diagnositics
Xrays with questionable right hip fracture. CT negative for fracture. DJD noted
Impression: RIGHT hip contusion. Right hip OA
Plan: I discussed with the patient at length. Fortunately she does not have a right hip fracture. Symptoms related to soft tissue and bony contusion vs. aggravation of her underlying hip OA. Ice to the hip as needed. Pain control. WBAT, with
assistance if necessary. PT/OT could be beneficial. Tx per the primary team. Dispo per CM. Orthopaedics to sign off for now. Please reengage if necessary with any pertinent questions.
--- NOTE | 2025-03-12 15:06 | CM ---
Initial assessment completed with daughter and DAVID at bedside
Pt is an 84yr old female admitted after a fall in her PC apartment at the [facility]. Initial imaging showed fracture, but CT showed no fracture. Further diagnostics pending.
At baseline, pt lives alone in a PC apartment at the [facility]
Per daughter, her cognition is worsening, but she is still functional with mobility and ADLs and alot of cuing/prompting.
Pt uses a RW and occasionally a transport chair. Pt also has a shower chair and toilet rails.
Pt is having significant pain and is currently Mod-Max with therapy. SNF recommended.
Daughter and DAVID both work for [employer] and request referral to be sent there. Referral placed.
PLAN; SNF
[2025-03-12] MEDS: ULTRAM 50 MG PO (17:19)
[2025-03-12 17:43] LABS: Urine Character Cloudy (Clear)
[2025-03-12 17:56] LABS: Urine Squamous Cell 0-2 /LPF (Few)
[2025-03-12 17:57] LABS: Urine Red Blood Cell 0-2 /HPF (0-2); Urine White Cell 80-90 /HPF (0-5)
[2025-03-12] MEDS: STERILE WATER FOR INJECTION 10 ML IV (20:23)
[2025-03-12] MEDS: ROCEPHIN 1000 MG IV (20:23)
[2025-03-13] MEDS: PROTONIX 40 MG PO (07:22)
[2025-03-13] MEDS: VITAMIN D3 (cholecalciferol) 50 MCG PO (07:22)
[2025-03-13] MEDS: TYLENOL 1000 MG PO ×3 (07:22→21:02)
[2025-03-13 07:30] VITALS: BP 135/65
--- NOTE | 2025-03-13 08:15 | W.PN.UPDATE ---
Update Note
Progress Note Update
Patient still having a fair amount of discomfort. Right knee to hip and into the low back. Right hip symptoms could very well be amplified by her knee OA, and maybe a lumbar issue as well. To be complete will request right knee and lumbar xrays to
rule out anything acute. Do not feel strongly about MR at this point given negative CT. Will review films when available and have her continue to work with PT/OT for now.
[2025-03-13] MEDS: ULTRAM 50 MG PO (08:27)
--- NOTE | 2025-03-13 09:51 | W.PN.HOSP.TC ---
Today's Communication/Plan
-
Lumbar spine x-ray
Continue with pain regimen and PT OT
Heme test dose
Start on p.o. iron
Assessment / Plan
Assessment / Plan
A/P: Patient is an 84y F with PMH significant for dementia and OAB who presents to ED for evaluation following at fall at [place].
Right Hip pain post mechanical fall
- CT shows no evidence of hip fracture or pelvic fracture
- Appreciate Ortho input
- Continue with pain regimen and PT. PT recommends rehab.
- Ortho recommending lumbar spine x-ray
Fall at Home
Head Injury
- CT head in the ED was unremarkable.
- Minor abrasion on exam - not other abnormality.
- No significant prodrome, LOC, etc.
- PT eval.
Possible UTI significant pyuria noted. Start on empirical ceftriaxone pending culture data
Microcytic Anemia
Thalassemia Trait
- Stable. Hgb is at / near known baseline.
- Iron studies with saturation of 7% suggest deficiency. Add ferritin. Check heme test stools. Start on oral iron.
Senile Dementia
- Stable. No agitation / abnormal behaviors.
- Follow for any changes during acute stay.
OAB
- Stable. Hold Myrbetriq acutely.
DVT Prophylaxis: SCDs
Code Status: Full
Anticipated Discharge: Within 24 hours
Subjective/Interval History
-
Date of Service: March 13, 2025
Today she denies much of pain from the right hip area especially when it is at rest. denying any radicular pain to the right foot. Denies any back pain.
Voicing no specific complaints
Denies any abdominal pain.
Denies any chest pain or shortness of breath.
Tolerating diet.
Objective Data
-
Vital Signs:
Vital Signs
Temp Pulse Resp BP Pulse Ox
98.5 F 71 16 135/65 93
03/13/25 07:30 03/13/25 07:30 03/13/25 07:30 03/13/25 07:30 03/13/25 07:30
I&O
03/12/25 03/13/25 03/14/25
06:59 06:59 06:59
Intake Total 720 / 720 480 / 480
Output Total 250 / 250
Balance 470 / 470 480 / 480
Physical Exam
-
General: No Apparent Distress
Respiratory: Non Labored Respirations; Negative Accessory Resp Muscle Use
Cardiac: Regular Rhythm and S1/S2
GI: Soft and Nontender
Neuro: AO x 3
Psych: Calm
Data Reviewed
-
Labs: Labs Reviewed by me
[2025-03-13] MEDS: FEOSOL 325 MG PO (10:50)
[2025-03-13 11:35] VITALS: BP 130/62; PULSE 61; O2SAT 93
[2025-03-13 12:27] LABS: Ferritin 16.5 ng/ml (11.1-264.0)
[2025-03-13 15:20] VITALS: BP 114/54
--- NOTE | 2025-03-13 16:05 | CHAP ---
Ms. Lira was in good spirits - welcomed the visit and prayer. Emotional and spiritual support provided.
[2025-03-13] MEDS: ROCEPHIN 1000 MG IV (20:11)
[2025-03-13] MEDS: STERILE WATER FOR INJECTION 10 ML IV (20:11)
[2025-03-13 23:25] VITALS: BP 126/54
[2025-03-14 07:25] VITALS: BP 149/72
--- NOTE | 2025-03-14 08:32 | W.PN.UPDATE ---
Update Note
Progress Note Update
Patient has severe Lsp DDD and severe end-stage right knee OA. In addition to this her x-rays and CT revealed right hip OA. I believe the combination of these findings are making it difficult for her here. CT was negative for right hip fracture.
Continue treatment per the primary team. Continue working with PT/OT to fracture better mobilize. Orthopedics will follow peripherally.
--- NOTE | 2025-03-14 08:48 | CM ---
Patient referral in [facility]-spoke with [facility] admissions [phone]
[facility] Accepted, bed available tomorrow if stable
PLAN: [facility] SNF when stable
Report #: [phone]
Fax #: [phone]
transportation forms on chart
[2025-03-14] MEDS: PROTONIX 40 MG PO (09:22)
[2025-03-14] MEDS: FEOSOL 325 MG PO (09:22)
[2025-03-14] MEDS: VITAMIN D3 (cholecalciferol) 50 MCG PO (09:22)
[2025-03-14] MEDS: TYLENOL 1000 MG PO ×3 (09:22→22:26)
[2025-03-14] MEDS: ULTRAM 50 MG PO ×2 (11:38→18:10)
--- NOTE | 2025-03-14 12:57 | WOUNDNOTE ---
[facility] RN NOTE: Reviewed chart, spoke to KASI Navarro and met with patient and family. Patient with mild, scattered areas of MASD. Incontinence care provided and Cal[employer] applied with assistance from [facility]. Per chart review, staff have been using Cal[employer]
with incontinence care. Per Melanie patient was able to transfer to [facility] earlier today. Heels and sacrum are intact. Patient reports fair appetite. Encouraged patient to allow frequent turning and repositioning. Static air overlay properly
inflated and heels off-loaded with pillow under calves. Will sign off.
--- NOTE | 2025-03-14 13:03 | W.PN.HOSP.TC ---
Today's Communication/Plan
-
PT OT
Pending placement to rehab
Empiric antibiotics pending cultures
Assessment / Plan
Assessment / Plan
A/P: Patient is an 84y F with PMH significant for dementia and OAB who presents to ED for evaluation following at fall at [place].
Right Hip pain post mechanical fall
Ambulatory dysfunction likely multifactorial due to pain with advanced right hip and knee OA and low spine DDD
- CT shows no evidence of hip fracture or pelvic fracture
- Appreciate Ortho input
- Continue with pain regimen and PT. PT recommends rehab.
- Ortho recommending lumbar spine x-ray
Fall at Home
Head Injury
- CT head in the ED was unremarkable.
- Minor abrasion on exam - not other abnormality.
- No significant prodrome, LOC, etc.
- PT eval.
Possible UTI significant pyuria noted. Start on empirical ceftriaxone pending culture data
Microcytic Anemia
Thalassemia Trait
- Stable. Hgb is at / near known baseline.
- Iron studies with saturation of 7% suggest deficiency. Add ferritin. Check heme test stools. Start on oral iron.
Senile Dementia
- Stable. No agitation / abnormal behaviors.
- Follow for any changes during acute stay.
OAB
- Stable. Hold Myrbetriq acutely.
DVT Prophylaxis: SCDs
Code Status: Full
Anticipated Discharge: Within 24 hours
Subjective/Interval History
-
Date of Service: March 14, 2025
Objective Data
-
Vital Signs:
Vital Signs
Temp Pulse Resp BP Pulse Ox
99.5 F 67 16 149/72 93
03/14/25 07:25 03/14/25 07:25 03/14/25 07:25 03/14/25 07:25 03/14/25 07:25
I&O
03/13/25 03/14/25 03/15/25
06:59 06:59 06:59
Intake Total 720 / 720 717 / 717 180 / 180
Output Total 250 / 250
Balance 470 / 470 717 / 717 180 / 180
Physical Exam
-
General: No Apparent Distress
Respiratory: Non Labored Respirations; Negative Accessory Resp Muscle Use
Cardiac: Regular Rhythm and S1/S2
GI: Soft and Nontender
Neuro: AO x 3
Psych: Calm
[2025-03-14 15:30] VITALS: BP 104/48
[2025-03-14 15:33] VITALS: BP 110/46; BP 99/57; PULSE 62
[2025-03-14] MEDS: STERILE WATER FOR INJECTION 10 ML IV (20:04)
[2025-03-14] MEDS: ROCEPHIN 1000 MG IV (20:04)
[2025-03-14 23:23] VITALS: BP 160/76
[2025-03-15] MEDS: PROTONIX 40 MG PO (07:16)
[2025-03-15] MEDS: VITAMIN D3 (cholecalciferol) 50 MCG PO (07:16)
[2025-03-15] MEDS: TYLENOL 1000 MG PO ×2 (07:16→16:55)
[2025-03-15] MEDS: FEOSOL 325 MG PO (07:16)
[2025-03-15 07:25] VITALS: BP 142/62
--- NOTE | 2025-03-15 10:28 | CM ---
Addendum entered by Jacy Gallagher 03/15/25 13:16:
Patient scheduled for 5:00 p.m. transport- daughter updated, [facility] liaison updated.
Addendum entered by Jacy Gallagher 03/15/25 12:56:
Call to patients daughter, aware of discharge. IMM verbally reviewed, placed in chart. Ambulance transport forms on chart.
Original Note:
CM reviewed chart, spoke with patients daughterSariah ([phone]) regarding decision planning, referral placed and accepted to [facility]. Daughter requesting MRI- request to Hospitalist. Patient will require ambulance transport upon discharge. CM
will continue to follow for all discharge planning needs.
Plan; [facility] when stable, will require ambulance transport
Report #: [phone]
Fax #: [phone]
--- NOTE | 2025-03-15 11:35 | W.DCSUMMARY ---
Discharge Summary
Discharge Data
Date of Admission: 03/12/25
Date of Discharge: 03/15/25
-
Pending Results: No
Hospital Course
Right Hip pain post mechanical fall
Ambulatory dysfunction likely multifactorial due to pain with advanced right hip and knee OA and low spine DDD
- CT shows no evidence of hip fracture or pelvic fracture
- As per orthopedics assessment, ambulatory dysfunction has been multifactorial in the settings of severe osteoarthritis of the right hip and knee as well as extensive degenerative joint disease in the lumbar spine
- Continue with pain regimen and PT. PT recommends rehab.
- Patient tolerates physical therapy and will be discharged to [facility] for further treatment.
Fall at Home
Head Injury
- CT head in the ED was unremarkable.
- Minor abrasion on exam - not other abnormality.
- No significant prodrome, LOC, etc.
- PT eval.
Klebsiella bacteriuria, possible UTI.
Patient has been afebrile with no urinary complaints. Normal WBC
Final urine culture with sensitive Klebsiella
Initiated on ceftriaxone. Will provide additional 2 days of antibiotics upon discharge.
Microcytic Anemia
Thalassemia Trait
- Stable. Hgb is at / near known baseline.
- Iron studies with saturation of 7% suggest deficiency. Add ferritin. Check heme test stools. Start on oral iron.
Senile Dementia
- Stable. No agitation / abnormal behaviors.
- Follow for any changes during acute stay.
OAB
- Stable. Hold Myrbetriq acutely.
DVT Prophylaxis: SCDs
Code Status: Full
Discharge Plan
-
Patient Disposition: Home (Routine Discharge)
Discharge Diagnosis/Procedures: Ambulatory dysfunction with falls at home.
Osteoarthritis of right hip and knee. Degenerative joint disease of the lumbar spine.
Condition: Good
Diet: Regular
Referrals:
Robel Rowell MD [Active, Orthopedics]
Blade Padilla MD [Family Provider, Family Practice]
Prescriptions:
New
tramadol 50 mg Tablet
50 mg PO Q6HPRN PRN (Reason: moderate pain) Qty: 15 0RF
acetaminophen [Tylenol Extra Strength] 500 mg Tablet
1,000 mg PO TID Qty: 30 0RF
cephalexin 500 mg capsule
500 mg PO Q8H Qty: 6 0RF
Continued
mirabegron [Myrbetriq] 50 mg Tablet Extended Release 24 Hr
50 mg PO DAILY
pantoprazole 40 mg Tablet,Delayed Release (Dr/Ec)
40 mg PO DAILY 30 Days Qty: 30 0RF
ondansetron 4 mg Tablet,Disintegrating
4 mg PO Q8H PRN (Reason: nausea)
cholecalciferol (vitamin D3) [Vitamin D3] 50 mcg (2,000 unit) Tablet
50 mcg PO DAILY
Discontinued
acetaminophen [Tylenol] 325 mg Tablet
650 mg PO QIDPRN PRN (Reason: mild pain)
diclofenac sodium 1 % Gel
2 g TOPICAL BID
Discharge Orders:
Discharge Patient (As Directed); Ordered 03/15/25
Ordered By: Iban Corbin
Discharge Date and Time
Print Language: LEBANESE
[2025-03-15 15:25] VITALS: BP 143/60
== END 2025-03-15 17:24 | DRG 605 ==
LOC: 2 SOUTH 02:46
PROVIDERS: Internal Medicine; ADMITTING PHYSICIAN Hospitalist; ATTENDING PHYSICIAN Internal Medicine; EMERGENCY PHYSICIAN Student in an Organized Health Care Education/Training Program; FAMILY PHYSICIAN Family Medicine
DX: S70.01XA Contusion of right hip, initial encounter (principal); N39.0 Urinary tract infection, site not specified; M16.11 Unilateral primary osteoarthritis, right hip; S00.81XA Abrasion of other part of head, initial encounter; N32.81 Overactive bladder; F03.90 Unspecified dementia, unspecified severity, without behavioral disturbance, psychotic disturbance, mood disturbance, and anxiety; M17.11 Unilateral primary osteoarthritis, right knee; M47.816 Spondylosis without myelopathy or radiculopathy, lumbar region; K21.9 Gastro-esophageal reflux disease without esophagitis; D56.3 Thalassemia minor; D50.9 Iron deficiency anemia, unspecified; B96.1 Klebsiella pneumoniae [K. pneumoniae] as the cause of diseases classified elsewhere; W06.XXXA Fall from bed, initial encounter; Y93.89 Activity, other specified; Y92.122 Bedroom in nursing home as the place of occurrence of the external cause; Z60.2 Problems related to living alone; Z87.891 Personal history of nicotine dependence
CPT/HCPCS: 70450; 72100; 73502; 73564; 73700; 80048; 80053; 81003; 81015; 82728; 83540; 83550; 85025; 85027; 85610; 85730; 86850; 86900; 86901; 87077; 87086; 87186; 93005; 96374; 97110; 97116; 97163; 97167; 97530; 97535; 99285

== ENCOUNTER → 2025-03-18 10:52 | Outpatient (REF) | payer OTHER, MEDICARE, SELFPAY ==
[2025-03-18 11:27] LABS: Hematocrit 33.4 % (37.0-47.0); Hemoglobin 10.4 g/dL (12.0-16.0); Mean Corp Hgb Conc. 31.1 g/dL (33.0-37.0); Mean Corpuscular Volume 73.6 fL (81.0-99.0); Platelet Count 334 10^3/uL (130-400); Red Cell Dist. Width 16.5 % (11.5-14.5)
[2025-03-18 11:37] LABS: Blood Urea Nitrogen 15 mg/dl (7-17); Calcium 9.5 mg/dl (8.4-10.2); Carbon Dioxide 26 mmol/L (22-30); Chloride 108 mmol/L (98-107); Glucose 98 mg/dl (70-99); Potassium 4.4 mmol/L (3.5-5.1); Sodium 140 mmol/L (135-145); eGFR > 60.00
== END ==
LOC: OLABP 10:52
PROVIDERS: ATTENDING PHYSICIAN Family Medicine
DX: D64.9 Anemia, unspecified (principal); D56.3 Thalassemia minor; E78.00 Pure hypercholesterolemia, unspecified; R32 Unspecified urinary incontinence
CPT/HCPCS: 36415; 80048; 85027

== ENCOUNTER 2025-04-04 01:15 | Emergency (ER) | payer MEDICARE, OTHER, SELFPAY ==
[2025-04-04 01:17] VITALS: BP 129/76
[2025-04-04 01:26] VITALS: BMI 23.7
--- NOTE | 2025-04-04 01:53 | ED.GENMED ---
History of Present Illness
General
Chief Complaint: Fall
Source: patient
Exam Limitations: none
Time Seen by Provider: 04/04/25 01:39
Nursing documentation reviewed up to this point in time: agreed with
History of Present Illness
History of Present Illness:
Note:
CHIEF COMPLAINT(S)
Fall with head trauma.
HISTORY OF PRESENT ILLNESS
The patient is an 82-year-old female with a past medical history of dementia, anemia, who experienced a fall while rising from a recliner. She does not recall all of the details of the fall but recalls hitting her head on a piece of furniture. At
the time of the fall, her head was painful, prompting sensations consistent with a possible nasal fracture, as reported by family members. She denies nose bleeding. There is no current complaint of dizziness, headache, neck pain, limb pain, rib
pain, or difficulty breathing. The patient reports her knees were painful while on the floor post-fall, though they are not painful now. She had trouble getting up on her own. She brings her call kay around her neck. There is a noted hematoma on
her head, but no current nosebleed or recent dark urine since the fall. The patient uses a walker but often forgets to use it and is not wheelchair-bound.
ADDITIONAL HISTORY OBTAINED FROM SOURCES OTHER THAN THE PATIENT
Per family members, they were notified about the fall around 12:15 to 12:20
EXTERNAL RECORDS REVIEWED
The patient was evaluated three weeks ago for a similar incident with concerns of hip and knee injury, where a computed tomography (CT) scan was performed. The patient was on the edge of her bed at the time of that fall. Electronic records may
provide additional information regarding past imaging or treatments.
CT shows no evidence of hip or pelvic fracture and right hip pain is likely due to to severe osteoarthritis
SOCIAL DETERMINANTS AFFECTING HEALTH
The patient does not consistently use her emergency button, impacting emergency response efficiency. There may be concerns about remembering to utilize assistive devices, which impacts her safety.
PHYSICAL EXAM
General: Patient is well appearing and in no acute distress; non-toxic
Skin: Warm and dry, small abrasion noted under left eye, left-sided frontal scalp hematoma
Head: See above, no tenderness palpation of the facial bones, TMJ joints intact bilateral
Eyes: Sclera non-icteric. EOMs intact.
Cardiac: Regular rate and rhythm, no murmurs, no tenderness palpation of external chest wall no palpable crepitus
Peripheral Vascular: No lower extremity swelling or edema
Pulm: Normal respiratory effort
Abdomen: No abdominal tenderness
Musculoskeletal: No tenderness palpation of the lower extremities bilaterally. No pain with internal extra rotation of the hips bilaterally. No pain with flexion and extension of the knees bilaterally
Neuro: CN II-XII intact, no focal neurologic deficits.
Psychiatric: Appropriate mood and affect.
Nursing notes reviewed and vital signs reviewed.
PLAN
- Obtain a computed tomography (CT) scan to evaluate for any intracranial injury and potential facial bone fractures.
- Clean and manage the small abrasion on the head.
- Assure tetanus prophylaxis is up-to-date.
- Pain management with Tylenol (acetaminophen) if needed.
- No immediate need for blood work given stable presentation.
DIFFERENTIAL DIAGNOSIS
The Differential Diagnosis includes, in no particular order and is not limited to:
1. Concussion
2. Subdural hematoma
3. Intracranial hemorrhage
4. Nasal fracture
5. Orbital wall fracture
6. Cervical spine injury
7. Rib fracture
8. Rhabdomyolysis (considering prolonged time on the floor)
9. Soft tissue injury
10. Dehydration effect due to lying on the floor for a prolonged period.
MDM/disposition
84-year-old female past medical history of dementia presents from her long term today with concerns of a fall. She fell and she is getting out of her recliner. She states that she did not lose consciousness. She denies dizziness notes a mild
headache. Her physical exam is unremarkable. EOMs intact with no signs of entrapment. She notes no neurologic deficits. She has a hematoma noted on her left forehead. She went for CAT scan of the head which was unremarkable and cervical spine
which showed no fractures. Patient stable for discharge. Discussed return precautions and follow-up with PCP.
Past History
Past History
ED Past Medical History: Other (Dementia, arthritis, urinary incontinence); Negative CAD, GERD, HTN, Hypercholesterolemia, NIDDM or Hypothyroidism
ED Past Surgical History: Other (Cataract removal)
Social History
Tobacco: Former smoker
Alcohol: Occasional (Rare alcohol use)
Drug: None
Personal: (But for 30 years)
Living: assisted living
Employment: Retired
Family History
Family History: Negative Early CAD, CAD or Sudden
Phy Exam
Physical Exam
Physical Exam:
see hpi
Course
Orders/Labs/Results
Orders:
Orders
04/04/25 01:51
CT Cervical Spine W/o Iv Contr Urgent
Comment:
Reason For Exam: headache, fall
Tetanus/Diphth/Acelpertussis [Adacel] 0.5 ml IM .ONCE ONE
04/04/25 01:52
CT Head W/o Iv Contrast Urgent
Comment:
Reason For Exam: headache, fall
Acetaminophen [Tylenol] 1,000 mg PO NOW STA
Vital Signs
Initial and Last Documented VS:
Initial Vital Signs
Temp Pulse Resp BP Pulse Ox
97.4 F 73 18 129/76 99
04/04/25 01:17 04/04/25 01:17 04/04/25 01:17 04/04/25 01:17 04/04/25 01:17
Last Documented Vital Signs
Temp Pulse Resp BP Pulse Ox
97.4 F 65 16 131/60 95
04/04/25 01:17 04/04/25 03:15 04/04/25 03:15 04/04/25 03:00 04/04/25 03:15
*Pulse Oximetry
SaO2: 97
Oxygen Mode of Delivery: Room air
Patient hypoxic: no
*Critical Care Note
Total Time (30-74mins, 75-104mins- exclusive of procedures): Not Applicable
ED Attending Note
-
Portions of this chart may have been created with voice recognition software.� Occasional wrong word or��sound alike� substitutions may have occurred due to the inherent limitations of voice recognition software.
Discharge Plan
Departure
Patient Disposition: Home (Routine Discharge)
Date of Disposition: 04/04/25
Time of Disposition: 03:21
Patient with high blood pressure during this ER visit?: Yes
Condition: Good
Discharge Problem:
Fall, Acute head trauma
Instructions: Preventing falls in adults, Skin Abrasions (DC), BLOOD PRESSURE
Prescriptions:
No Action
mirabegron [Myrbetriq] 50 mg Tablet Extended Release 24 Hr
50 mg PO DAILY
pantoprazole 40 mg Tablet,Delayed Release (Dr/Ec)
40 mg PO DAILY 30 Days Qty: 30 0RF
ondansetron 4 mg Tablet,Disintegrating
4 mg PO Q8H PRN (Reason: nausea)
cholecalciferol (vitamin D3) [Vitamin D3] 50 mcg (2,000 unit) Tablet
50 mcg PO DAILY
tramadol 50 mg Tablet
50 mg PO Q6HPRN PRN (Reason: moderate pain) Qty: 15 0RF
acetaminophen [Tylenol Extra Strength] 500 mg Tablet
1,000 mg PO TID Qty: 30 0RF
cephalexin 500 mg capsule
500 mg PO Q8H Qty: 6 0RF
Referrals:
Blade Padilla MD [Family Provider, Family Practice]
Activity Restrictions/Additional Instructions:
Please continue to use your walker.
You can continue to take Tylenol as needed for pain.
PLEASE RETURN TO EMERGENCY DEPARTMENT SHOULD SHE DEVELOP LOSS OF CONSCIOUSNESS, NECK PAIN, FAINTING SPELLS, CHEST PAIN, SHORTNESS OF BREATH, OR ANY OTHER SIGNS OR SYMPTOMS WORRISOME TO YOU.
Interventions
Interventions:
*Risk Screen - Suicide Last Done: 04/04/25 01:22
*General Assessment Last Done: 04/04/25 01:22
*Neglect/Abuse Screening Last Done: 04/04/25 01:22
*ED- Fall Risk Assessment Last Done: 04/04/25 01:23
*ED COVID-19 Vaccine History Last Done: 04/04/25 01:26
ED-Musculoskeletal Assessment Last Done: 04/04/25 02:24
ED- Neurological Assessment Last Done: 04/04/25 02:24
ED-Skin Assessment Last Done: 04/04/25 02:24
Discharge Date and Time
Print Language: THAI
[2025-04-04] MEDS: TYLENOL 1000 MG PO (02:10)
[2025-04-04] MEDS: ADACEL 0.5 ML IM (02:12)
[2025-04-04 02:29] VITALS: BP 139/72
[2025-04-04 03:00] VITALS: BP 131/60
[2025-04-04 03:22] VITALS: BP 141/67
[2025-04-04 04:00] VITALS: BP 112/59
== END 2025-04-04 04:51 ==
LOC: EMR 01:15
PROVIDERS: EMERGENCY PHYSICIAN Emergency Medicine; FAMILY PHYSICIAN Family Medicine
DX: S09.90XA Unspecified injury of head, initial encounter (principal); S00.83XA Contusion of other part of head, initial encounter; R03.0 Elevated blood-pressure reading, without diagnosis of hypertension; F03.90 Unspecified dementia, unspecified severity, without behavioral disturbance, psychotic disturbance, mood disturbance, and anxiety; M16.11 Unilateral primary osteoarthritis, right hip; R32 Unspecified urinary incontinence; Z23 Encounter for immunization; Z87.891 Personal history of nicotine dependence; W18.39XA Other fall on same level, initial encounter; Y92.129 Unspecified place in nursing home as the place of occurrence of the external cause; W22.03XA Walked into furniture, initial encounter
CPT/HCPCS: 99284; 90471; 70450; 72125; 90715